=== PATIENT | female | born 1960 | race Caucasian/White ===

== ENCOUNTER 2018-05-20 19:55 | Inpatient (IN) | payer OTHER ==
[~2018-05-20] VITALS: Ht 154.9 cm; Wt 72.7 kg
--- NOTE | ~2018-05-20 | EC ---
PATIENT:YOSSI EUGENE DATE OF SERVICE: 05/20/18 SEX: F MEDICAL RECORD: [id number] DATE OF : 60 LOCATION:D.M2 D.212 AGE OF PATIENT: 58 ADMISSION DATE: 05/21/18 REFERRING PHYSICIAN: INTERPRETING PHYSICIAN: OLIVER SHERIDAN MD ECHOCARDIOGRAM REPORT ECHO CHARGES 4 ECHO COMPLETE Date: 05/21/18 CLINICAL DIAGNOSIS: CHRONIC DYSPNEA ECHOCARDIOGRAPHIC MEASUREMENTS (adult normal given) AC root (d.<3.7cm) 2.4 cm LV Septum d (<1.2 cm> 1.2 cm Valve Excursion 1.1 cm LV Septum (systole) 1.3 cm Left Atria (s.<4.0cm> 3.9 cm LVPW d(<1.2cm) 1.0 cm RV (d.<2.3cm) 1.8 cm LVPW (sytole) 1.1 cm LV diastole(<5.6CM) 4.4 cm MV E-F(>70mm/sec) cm LV systole 3.7 cm LVOT Diameter 1.9 cm MV exc.(>10mm) cm Est.ejection fraction (50-75%) % DOPPLER: LVIT cm/sec A 59 cm/sec E 72 cm/sec LA cm/sec RVSP 33.7 mmHg LVOT 95 cm/sec AOP1/2T m/s Asc. Ao 142 cm/sec RVOT 49 cm/sec RA cm/sec PA 65 cm/sec AV Gradient Peak 8.1 mmHg AV Mean 4.0 mmHg AV Area 2.2 cm MV Gradient Peak 4.3 mmHg MV Mean 2.1 mmHg MV Area cm COMMENTS: Legal Counsel: Harsh LUQUECURT BENJAMIN Bowling Pin Refinisher: 1 Dr. Sheridan TAPE# PACS Pericardial Effusion N DATE OF SERVICE: 05/21/2018 FINDINGS: 1. Left ventricular chamber size is within normal limits. Left ventricular systolic function is normal. Overall ejection fraction estimated at 60%. 2. Left atrium, right atrium, and right ventricular chamber sizes are within normal limits. 3. Valvular structures have normal structure and motion. 4. Doppler interrogation reveals mild tricuspid regurgitation. No other valvular insufficiency or stenosis. Pulmonary systolic pressure is normal, ECHOCARDIOGRAM REPORT [id number] YOSSI EUGENE estimated 34 mmHg. 5. No evidence of pericardial effusion or left ventricular thrombus. TRANSINT:[id number] Voice Confirmation ID: [id number] DOCUMENT ID: [id number] OLIVER SHERIDAN MD at 1856 CC: [id number] DICTATION DATE: 05/21/18 1233 TRAVELING PLANT OPERATOR: 05/21/18 1251 DIS IN 05/21/18 [place] [id number] [place] [id number]
--- NOTE | ~2018-05-20 | HEMODYNAMI ---
PATIENT:YOSSI EUGENE MEDICAL RECORD: [id number] : 60 [id number] ADMISSION DATE: 05/20/18 Generatedon:05/21/201812:29 Patient name: YOSSI EUGENE Patient #: [id number] SSN: D OB: 1960 Date of study: 05/21/2018 Page: Of Hemodynamic Procedure Report Patient Data Patient Demographics Procedure consent was obtained First Name: YOSSI Gender: Female Last Name: JABIER : 1960 Patient #: [id number] Age: 58 year(s) Race: Unknown Additional ID: [id number] Contact details Address: [address] [place] [address] State: [place] City: [place] Zip code: [address] Past Medical History Allergies Allergen Reaction Date Comments Reported Other [facility] Admission Data Admission Date: 05/20/2018 Admission Time: 23:33 Room #: D.2123 Height (in.): 60.63 BSA: 1.73 (m2) Height (cm.): 154 BMI: 31.62 (kg/m2) Weight (lbs.): 165.35 Weight (kg.): 75 Lab Results Lab Result Date: 05/21/2018 Lab Result Time: 0:00 Biochemistry Name Units Result Min Max BUN mg/dl 15 --(--*-)-- 7 18 Creatinine mg/dl 0.7 --(*---)-- 0.6 1.3 CBC Name Units Result Min Max Hemoglobin g/dl 14 --(*---)-- 13.5 17.5 Procedure Procedure Types Cath Procedure Diagnostic Procedure C C w/Coronaries Procedure Description Procedure Date Procedure Date: 05/21/2018 Procedure Start Time: 12:19 Procedure End Time: 12:25 Procedure Staff Name Function Kee Sheridan MD Performing Physician Vanessa Huertas RT Monitor Chuck Calderon RN Nurse Kylie Ochoa RT Scrub Procedure Data Cath Procedure Fluoroscopy Diagnostic fluoroscopy Total fluoroscopy Time: 1.7 time: 1.7 min min Diagnostic fluoroscopy Total fluoroscopy dose: 464 dose: 464 mGy mGy Contrast Material Contrast Material Type Amount (ml) Isovue 300 36 Entry Location Entry Primary Successful Side Size Upsize Upsize Entry Closure Zheng ccessful Closure Location (Fr) 1 (Fr) 2 (Fr) Remarks Device Remarks Radial Right 6 Fr Mechanical artery Short Compression Estimated blood loss: 10 ml Procedure Complications No complications Procedure Medications Medication Administration Route Dosage Oxygen etCO2 Nasal cannula 2 l/min Lidocaine 2% added to field 20 Heparin Flush Bag added to field 2 bags (1000units/500ml NS) 0.9% NaCl 100 ml/hr Radial Cocktail I.A. 1 syringe (Verapomil 2mg/Nitro 400mcg/Heparin 1500units) Versed I.V. 2 mg Fentanyl I.V. 100 mcg Benadryl I.V. 50 mg Hemodynamics Rest BSA: 1.73 (m2) HGB: 14 (g/dl) O2 Consumption: Estimated: 161.54 (ml/min) O2 Cons umption indexed: Estimated:93.38 (ml/min/m) Heart Rate: 65 (bpm) Snapshots Pre Cath Intra NCS Post Cath Vital Signs Time Heart Resp SPO2 etCO2 NIBP (mmHg) Rhythm Pain Sedation Rate (ipm) (%) (mmHg) Status Level (bpm) 12:08:42 59 23 98 12.1 Measuring NSR 0 (11) 10(A) , No pain 12:08:56 57 17 98 24.3 156/98(137) NSR 0 (11) 10(A) , No pain 12:17:50 75 13 93 27.3 160/101(144) NSR 0 (11) 9(A) , No pain 12:22:00 77 12 95 31.1 152/98(118) NSR 0 (11) 9(A) , No pain 12:28:25 68 12 94 29.6 148/97(116) NSR 0 (11) 10(A) , No pain Medications Time Medication Route Dose Verified Delivered Reason Notes Effectiveness by by 12:08:08 Benadryl I.V. 50 mg Kee Woods used for Arvin Calderon processes chemical design engineer 12:08:56 Oxygen etCO2 2 l/min Kee Woods used for Nasal Arvin Calderon processes chemical design engineer cannula 12:09:02 Lidocaine 2% added 20ml Kee Sweet for local to vial Arvin Sheridan MD anesthetic field 12:09:09 Heparin Flush added 2 bags Kee Sweet used for Bag to Arvin Sheridan MD procedure (1000units/500ml field NS) 12:09:23 0.9% NaCl 100 Kee Woods Per ml/hr Arvin Calderon RN physician 12:12:37 Versed I.V. 2 mg Kee Woods for sedation Arvin Calderon RN 12:12:43 Fentanyl I.V. 100 mcg Kee Woods for sedation Arvin Calderon RN 12:18:29 Radial Cocktail I.A. 1 Kee Sweet for (Verapomil syringe Arvin Sheridan MD vasodilation 2mg/Nitro 400mcg/Heparin 1500units) Procedure Log Time Note 11:43:04 Patient Height : 60.63 inches 11:43:38 Diagnostic Cath status Elective 11:43:40 Chuck Calderon RN sent for patient. Start room use. 11:43:41 Time tracking: Regular hours (M-F 7:00 - 5:00) 11:43:47 Plan of Care:Hemodynamics will remain stable., Cardiac rhythm will remain stable., Comfort level will be maintained., Respiratory function will remain adequate., Patient/ family verbilizes understanding of procedure., Procedure tolerated without complication., Recovers from procedure without complications.. 11:43:53 Patient received from Med II to CCL 2 Alert and oriented. Tansferred to table in Supine position. 11:43:54 Warm blankets applied, and nadya hugger turned on for patient comfort. 11:45:07 Lab Result : Hemoglobin 14 g/dl 11:45:07 Lab Result : Creatinine 0.7 mg/dl 11:45:07 Lab Result : BUN 15 mg/dl 11:45:15 Patient Weight : 165.35 lbs 12:06:50 Correct patient and procedure confirmed by team. 12:06:51 Signed procedure consent form obtained from patient. 12:06:52 ECG and BP/O2 sat monitors applied to patient. 12:06:53 Vital chart was started 12:08:08 Benadryl 50 mg I.V. was administered by Chuck Calderon RN; used for procedure; 12:08:14 Baseline sample Acquired. 12:08:18 Rhythm: sinus rhythm 12:08:20 Full Disclosure recording started 12:08:29 H&P Date Dictated: 05/21/2018 Within 30 days and on chart.. 12:08:31 Pre-procedure instructions explained to patient. 12:08:33 Family in waiting room. 12:08:35 Patient NPO since Midnight. 12:08:48 Patient allergic to Other allergysee chrt 12:08:51 Is the patient allergic to Iodine/contrast media? No. 12:08:56 Oxygen 2 l/min etCO2 Nasal cannula was administered by Chuck Calderon RN; used for procedure; 12:09:02 Lidocaine 2% 20ml vial added to field was administered by Kee Sheridan MD; for local anesthetic; 12:09:09 Heparin Flush Bag (1000units/500ml NS) 2 bags added to field was administered by Kee Sheridan MD; used for procedure; 12:09:22 Was the patient premedicated? No 12:09:23 0.9% NaCl 100 ml/hr was administered by Chuck Calderon RN; Per physician; 12:09:24 Is patient on blood thinner?No 12:09:25 Patient diabetic? Yes. 12:09:27 If diabetic: On Metformin? Yes 12:09:29 If on Metformin: Last Dose? 05/20/2018 12:09:34 Snore? Yes 12:09:36 Sleep apnea? No 12:09:44 Airway obstruction? Yes Asthma 12:09:52 Patient pain scale 0/10 SOB. 12:09:59 IV patent on arrival in left forearm with 0.9% NaCl at [facility]. 12:10:02 Lab results completed and on chart. 12:10:06 Right Radial & Right Groin area was prepped with chlora-prep and draped in sterile fashion 12:10:08 Alarms reviewed by R. N. 12:10:08 Sharps counted by scrub and verified by R.N. 12:10:09 Physician paged 12:10:11 Physician arrived 12:10:13 --------ALL STOP TIME OUT------ 12:10:14 Final Timeout: patient, procedure, and site verified with staff and physician. All members of the team are in agreement. 12:10:16 Right Radial & Right Groin site verified by team. 12:10:20 Physical assessment completed. ASA score P 2 - A patient with mild systemic disease as per Kee Sheridan MD. 12:10:24 Sedation plan: IV Moderate Sedation Medication:Versed, Fentanyl 12:10:28 Use device set Femoral Dx 12:12:37 Versed 2 mg I.V. was administered by Chuck Calderon RN; for sedation; 12:12:43 Fentanyl 100 mcg I.V. was administered by Chuck Calderon RN; for sedation; 12:16:02 ACIST Syringe (79351) opened to sterile field. 12:16:03 Bag Decanter (2002S) opened to sterile field. 12:16:04 Medline Cath Pack ([id number]) opened to sterile field. 12:16:04 DIAGNOSTIC WIRE .035 260cm J wire (590073) opened to sterile field. 12:16:07 ACIST Hand Control (65406) opened to sterile field. 12:16:07 ACIST Manifold (67645) opened to sterile field. 12:16:10 Tegaderm 4 x 4 (1626W) opened to sterile field. 12:17:03 Zero performed for pressure channel P1 12:17:16 SHEATH 6FR [place] (PAS082) opened to sterile field. 12:18:29 Radial Cocktail (Verapomil 2mg/Nitro 400mcg/Heparin 1500units) 1 syringe I.A. was administered by Kee Sheridan MD; for vasodilation; 12:18:46 Zero performed for pressure channel P1 12:18:49 Zero performed for pressure channel P1 12:19:01 Procedure started. 12:19:07 Local anesthetic to right radial artery with Lidocaine 2% by Kee Sheridan MD.INITIAL ACCESS ONLY 12:19:17 A 6 Fr Short sheath was inserted into the Right Radial artery 12:19:32 GUIDE 6Fr [place] 4.0 catheter (540124) opened to sterile field. 12:19:37 LV angiography performed. 12:19:42 EF : 60 % 12:19:50 RCA angiography performed. 12:20:39 Catheter removed. 12:21:05 GUIDE 6FR XBLAD 3.5 catheter ([id number]) opened to sterile field. 12:21:18 LCA angiography performed. 12:22:04 Catheter removed. 12:22:22 Sheath removed intact; hemostasis achieved with Mechanical Compression to the Right Radial artery. 12:22:49 TR BAND Standard ([id number]) opened to sterile field. 12:22:53 Procedure ended.(Physican Out) 12:23:03 Fluoroscopy time 01.70 minutes. 12:23:08 Fluoroscopy dose: 464 mGy 12:23:08 Flurop Dose total: 464 12:23:14 Contrast amount:Isovue 300 36ml. 12:23:19 Sharps counted by scrub and verified by R.N. 12:23:22 TR band inflated with 13cc of air. 12:23:23 Insertion/operative site no bleeding no hematoma. 12:23:31 Post-op/insertion site Right Femoral artery dressed using a 4 x 4 and Tegaderm. 12:23:40 Post right radial artery:stable 12:23:42 Post Procedure Pulses reassessed and unchanged 12:23:46 Post-procedure physical assessment completed. ASA score P 2 - A patient with mild systemic disease as per Kee Sheridan MD. 12:23:49 Post procedure rhythm: sinus rhythm 12:23:52 Estimated blood loss: 10 ml 12:23:57 Post procedure instruction explained to patient.Patient verbalizes understanding. 12:24:13 Procedure and supply charges have been captured, reviewed, submitted and are correct. 12:25:06 Procedure Complication : No complications 12:25:08 Vital chart was stopped 12:25:09 See physician's report for complete and final results. 12:25:12 Report given to Pre/Post Procedure Room. 12:25:16 Patient transfered to Pre/Post Procedure Room with Stretcher. 12:25:18 Procedure ended. 12:25:18 Full Disclosure recording stopped 12:25:21 End room use (Document Last) Device Usage Item Name Manufacture Quantity Catalog Hospital Part Current Minimal L ot# / Number Charge Number Stock Stock Serial# Code ACIST Acist 1 23455 416821 081421 086218 20 Syringe Medical (97454) Systems Inc Bag Microtek 1 834945 42565 859606 5 Decanter Medical Inc. () Medline Medline 1 [id number] 525176 06338 221007 5 Cath Pack ([id number]) DIAGNOSTIC St Len 1 982522 835423 259426 899699 30 WIRE .035 260cm J wire (376920) ACIST Hand Acist 1 95491 129547 875948 057527 5 Control Medical (25534) Systems Inc ACIST Acist 1 81909 838394 829527 573571 5 Manifold Medical (74754) Systems Inc Tegaderm 4 3M 1 1626W 747672 878362 216371 5 x 4 (1626W) SHEATH 6FR Terumo 1 UHV522 150137 167386 687492 40 [place] (UBN895) GUIDE 6Fr Terumo 1 40-1611 440142 962930 120913 1 [place] 4.0 catheter (041288) GUIDE 6FR Cardinal 1 09580738 530955 791777 749550 10 XBLAD 3.5 Health catheter (52601969) TR BAND Terumo 1 DKI71-UOJ 700410 583814 704659 40 Standard ([id number]) Signature Audit [place] Stage Time Signature Unsigned Intra-Procedure 05/21/2018 Vanessa Huertas 12:29:05 PM RT(R) Signatures Monitor : Vanessa Huertas Signature : RT Date : Time : [place] [address]Amena AMANDA CAMERONManuel, ESTHELA [address]
--- NOTE | ~2018-05-20 | OP ---
PATIENT NAME: YOSSI EUGENE MEDICAL RECORD: [id number] :60 LOCATION:D.M2 D.2123 ADMISSION DATE:05/21/18 SURGEON: OLIVER WILLARD MD DATE OF OPERATION: 05/21/2018 PROCEDURES: 1. Left heart catheterization. 2. Selective coronary angiography. 3. Left ventriculogram. INDICATION: Chest pain compatible with angina. PROCEDURE IN DETAIL: After informed consent was obtained and after a detailed description of the risks, benefits as well as alternative therapies, the patient elected to proceed with angiogram and heart catheterization. The right radial area was prepped and draped in normal sterile fashion. Right radial artery was cannulated via modified Seldinger technique with placement of 5-Marshallese sheath. All catheters exchanged through this sheath. FINDINGS: The left ventriculogram was performed in standard 30-degree MOORE view, reveals good cardiac wall motion throughout all segments. Overall ejection fraction estimated 60%. SELECTIVE CORONARY ANGIOGRAPHY: Left main, left anterior descending, left circumflex, right coronary artery are smooth-walled vessels with no angiographic evidence of coronary artery disease. OVERALL IMPRESSION: 1. No angiographic evidence of coronary artery disease. 2. Normal left heart pressures. 3. Normal left ventricular systolic function. Chest pain is noncardiac in etiology. No further cardiac workup needs to be ascertained. TRANSINT:[id number] Voice Confirmation ID: [id number] DOCUMENT ID: [id number] OLIVER WILLARD MD at 1856 CC: [id number] DICTATION DATE: 05/21/18 1224 TIMBER BUYER: 05/21/18 1244 DIS IN 05/21/18 [place] [id number] [place] [address]
--- NOTE | ~2018-05-20 | MORECARE ---
CASE MANAGEMENT DISCHARGE SUMMARY PATIENT: YOSSI EUGENE UNIT: [id number] ADM DATE: 05/21/18 AGE: 58 : 60 SEX: F ROOM/BED: D.3023 AUTHOR: VISHAL NICOLAS PHYSICIAN: REFERRING PHYSICIAN: KATRINA BERMUDEZ MD DATE OF SERVICE: 05/22/18 Discharge Plan Patient Name: YOSSI EUGENE [facility] [facility] 1960 Planned Disposition: Home Anticipated Discharge Date: 05/21/18 Discharge Date: 05/21/2018 Expected LOS: 1 Initial Reviewer: [email or web address] Initial Review Date: 05/22/2018 Generated: 05/22/18 9:37 am Patient Name: YOSSI EUGENE Page 93830 at 0837 All edits/amendments must be made on the electronic document DICTATION DATE: 05/22/18835 HAZARDOUS MATERIALS HANDLER: FLAVIA 05/22/1836 RPT#: [id number] DC DATE:05/21/18 STATUS: DIS IN [facility] [address] [facility] [place] [address] END OF REPORT
[2018-05-20] MEDS ORDERED: COREG12.5 MG PO (20:12)
[2018-05-20] MEDS ORDERED: GLYXAMBI 25 MG1 EACH PO (20:13)
[2018-05-20] MEDS ORDERED: GLUCOPHAGE1000 MG PO (20:13)
[2018-05-20] MEDS ORDERED: LOSARTAN-HCTZ1 EAC2 PO (20:13)
[2018-05-20] MEDS ORDERED: DULERA 100 MCG8.8 GM INH (20:13)
[2018-05-20] MEDS ORDERED: NEXIUM20 MG PO (20:14)
[2018-05-20] MEDS ORDERED: K-TAB10 MEQ PO (20:14)
[2018-05-20] MEDS ORDERED: PRAVACHOL40 MG PO (20:14)
[2018-05-20] MEDS ORDERED: PREVACID30 MG PO (20:14)
[2018-05-20] MEDS ORDERED: REGLAN5 MG PO (20:15)
[2018-05-20] MEDS ORDERED: SINGULAIR10 MG PO (20:15)
[2018-05-20] MEDS ORDERED: DESERYL50 M2 PO (20:15)
[2018-05-20] MEDS ORDERED: VITAMIN B-12100 MCG PO (20:15)
[2018-05-20] MEDS ORDERED: PHENERGAN12.5 MG RC (20:15)
[2018-05-20] MEDS ORDERED: ZOFRAN4 MG PO (20:16)
[2018-05-20] MEDS ORDERED: XOPENEX 1.1.25 MG/3 (20:16)
[2018-05-20] MEDS ORDERED: ZETIA10 MG PO (20:16)
[2018-05-20] MEDS ORDERED: VITAMIN D250000 UNIT PO (20:16)
[2018-05-20] MEDS ORDERED: ADDERALL 30 MG30 MG PO (20:17)
[2018-05-20] MEDS ORDERED: BUMEX2 MG PO (20:17)
[2018-05-20] MEDS ORDERED: ATROVENT HFA12.9 GM INH (20:17)
[2018-05-20] MEDS ORDERED: KLONOPIN1 MG PO (20:17)
[2018-05-20] MEDS ORDERED: CARDIZEM LA180 MG PO (20:17)
[2018-05-20 21:32] LABS: APPEARANCE CLEAR (CLEAR); COLOR YELLOW (YELLOW); SPECIFIC GRAVITY 1.025 (1.005-1.020)
[2018-05-20 21:32] LABS: BASOPHILS 0.1 % (0-2); EOSINOPHILS 0.1 % (0-7); HEMOGLOBIN 14.9 g/dL (12-16); IMMATURE GRANULOCYTES 0.6 % (0-5); LYMPHOCYTES 22.3 % (15-50); MCH 29.9 pg (26.0-34.0); MCHC 34.7 g/dL (31.0-37.0); MCV 86.2 fL (80.0-100.0); MEAN PLATELET VOLUME 10.4 fL (7.4-10.4); MONOCYTES 8.6 % (2-11); NEUTROPHILS 68.3 % (40-80); PLATELET COUNT 245 10x3/uL (130-400); RBC 4.99 10x6/uL (4.00-5.40); RDW 13.2 % (11.5-14.5); WBC 10.4 10x3/uL (4.8-10.8)
[2018-05-20 21:33] LABS: BACTERIA FEW /hpf (NONE SEEN); BILIRUBIN NEGATIVE (NEGATIVE); EPITHELIAL CELLS OCC /hpf (0-5); GLUCOSE 1000 mg/dL (NEGATIVE); KETONE NEGATIVE (NEGATIVE); NITRITE NEGATIVE (NEGATIVE); PROTEIN NEGATIVE (NEGATIVE); RED CELLS - URINE OCC /hpf (0-5); UROBILINOGEN NORMAL (NORMAL); WHITE CELLS - URINE 0-5 /hpf (0-5)
[2018-05-20 21:40] LABS: ALBUMIN 3.6 g/dL (3.4-5.0); ALKALINE PHOSPHATASE 113 U/L (46-116); ALT (SGPT) 19 U/L (10-68); BILIRUBIN - TOTAL 0.25 mg/dL (0.2-1.3); CALC OSMOLALITY 285 mosm/kg (275-300); CALCIUM 9.1 mg/dL (8.5-10.1); CARBON DIOXIDE 23.3 mmol/L (21.0-32.0); CHLORIDE - SERUM 107 mmol/L (98-107); CREATININE - SERUM 0.8 mg/dL (0.6-1.3); GLUCOSE 134 mg/dL (74-106); SODIUM 141 mmol/L (136-145); UREA NITROGEN 20 mg/dL (7-18); eGFR NON AFRICAN AMERICAN 78 mL/min (90-120)
[2018-05-20 21:48] LABS: PRO BNP 475 pg/mL (0-125)
[2018-05-20 21:49] LABS: TROPONIN-I < 0.017 ng/mL (0.000-0.060)
[2018-05-20 23:00] VITALS: BP 138/81
[2018-05-21 00:41] VITALS: BP 140/83
[2018-05-21 08:31] VITALS: BP 109/77
[2018-05-21] MEDS ORDERED: PHENERGAN25 M1 PO (09:06)
[2018-05-21] MEDS ORDERED: MUCINEX DM ER1 EAC1 PO (09:07)
[2018-05-21 10:34] LABS: BASOPHILS 0.2 % (0-2); EOSINOPHILS 0.3 % (0-7); HEMATOCRIT 41.1 % (36.0-48.0); IMMATURE GRANULOCYTES 0.6 % (0-5); LYMPHOCYTES 30.4 % (15-50); MCH 29.4 pg (26.0-34.0); MCHC 34.1 g/dL (31.0-37.0); MCV 86.2 fL (80.0-100.0); MEAN PLATELET VOLUME 10.2 fL (7.4-10.4); MONOCYTES 7.6 % (2-11); NEUTROPHILS 60.9 % (40-80); PLATELET COUNT 214 10x3/uL (130-400); RBC 4.77 10x6/uL (4.00-5.40); RDW 13.2 % (11.5-14.5)
[2018-05-21 10:44] LABS: CALC OSMOLALITY 289 mosm/kg (275-300); CALCIUM 8.5 mg/dL (8.5-10.1); CARBON DIOXIDE 25.4 mmol/L (21.0-32.0); CHLORIDE - SERUM 109 mmol/L (98-107); CREATININE - SERUM 0.7 mg/dL (0.6-1.3); GLUCOSE 104 mg/dL (74-106); POTASSIUM - SERUM 3.7 mmol/L (3.5-5.1); SODIUM 145 mmol/L (136-145); UREA NITROGEN 15 mg/dL (7-18); WBC 6.6 10x3/uL (4.8-10.8); eGFR NON AFRICAN AMERICAN > 90 mL/min (90-120)
[2018-05-21 12:00] VITALS: BP 137/73
[2018-05-21 16:03] VITALS: BP 143/75
[2018-05-21 16:46] VITALS: Ht 154.9 cm; Wt 72.7 kg
== END 2018-05-21 18:48 | disposition home or self-care (01) | DRG 195 ==
LOC: D.ER 19:55 → D.M2 23:33 → D.EDHOLD 23:33 → D.M2 05-21 04:25 → OBSVTIME 05-21 15:10 → D.M2 05-21 15:11
PROVIDERS: Family Medicine; Internal Medicine Interventional Cardiology
PROC: B2151ZZ Fluoroscopy of Left Heart using Low Osmolar Contrast (ICD-10-PCS; 2018-05-21)
PROC: 4A023N7 Measurement of Cardiac Sampling and Pressure, Left Heart, Percutaneous Approach (ICD-10-PCS; 2018-05-21)
PROC: B2111ZZ Fluoroscopy of Multiple Coronary Arteries using Low Osmolar Contrast (ICD-10-PCS; principal; 2018-05-21 11:30)
DX: J18.9 Pneumonia, unspecified organism (principal); J45.909 Unspecified asthma, uncomplicated; F41.9 Anxiety disorder, unspecified; K21.9 Gastro-esophageal reflux disease without esophagitis; I10 Essential (primary) hypertension; E11.9 Type 2 diabetes mellitus without complications; Z86.79 Personal history of other diseases of the circulatory system; R00.2 Palpitations

== ENCOUNTER → 2018-08-19 12:57 | Outpatient (CLI) | payer BC ==
[2018-05-21 16:46] VITALS: BMI 30.3
[~2018-08-19 12:57] MED LIST: ADDERALL 30 MG30 MG PO; ATROVENT HFA12.9 GM INH; BUMEX2 MG PO; CARDIZEM LA180 MG PO; COREG12.5 MG PO; DESERYL50 M2 PO; DULERA 100 MCG8.8 GM INH; GLUCOPHAGE1000 MG PO; GLYXAMBI 25 MG1 EACH PO; K-TAB10 MEQ PO; KLONOPIN1 MG PO; LOSARTAN-HCTZ1 EAC2 PO; MUCINEX DM ER1 EAC1 PO; NEXIUM20 MG PO; PHENERGAN12.5 MG RC; PHENERGAN25 M1 PO; PRAVACHOL40 MG PO; PREVACID30 MG PO; REGLAN5 MG PO; SINGULAIR10 MG PO; VITAMIN B-12100 MCG PO; VITAMIN D250000 UNIT PO; XOPENEX 1.1.25 MG/3; ZETIA10 MG PO; ZOFRAN4 MG PO
[2018-08-23 14:11] LABS: IMMUNOGLOBULIN E 253 IU/mL (0-100)
== END | disposition home or self-care (01) ==
LOC: D.LABREF 12:57
PROVIDERS: Internal Medicine Pulmonary Disease
DX: J45.909 Unspecified asthma, uncomplicated (principal)

== ENCOUNTER → 2018-09-26 13:05 | Outpatient (CLI) | payer BC ==
[2018-05-21 16:46] VITALS: BMI 30.3
== END | disposition home or self-care (01) ==
LOC: D.LAB 09-09 14:30 → D.RT 09-09 15:00
PROVIDERS: ATTEND Internal Medicine Pulmonary Disease
DX: J45.909 Unspecified asthma, uncomplicated (principal)

== ENCOUNTER 2019-02-02 08:00 | Outpatient (CLI) | payer BC ==
[2018-05-21 16:46] VITALS: BMI 30.3
== END 2019-02-02 23:59 | disposition home or self-care (01) ==
LOC: D.MAMMO 08:00
PROVIDERS: ATTEND Clinical Nurse Specialist Adult Health
DX: Z12.31 Encounter for screening mammogram for malignant neoplasm of breast (principal)

== ENCOUNTER → 2019-06-03 13:08 | Outpatient (CLI) | payer BC ==
[2018-05-21 16:46] VITALS: BMI 30.3
--- NOTE | 2019-06-09 14:03 | EC ---
PATIENT:YOSSI EUGENE DATE OF SERVICE: 06/03/19 SEX: F MEDICAL RECORD: [id number] DATE OF : 60 [facility]GE OF PAT[facility]: 59 ADMISSION DATE: 06/03/19 REFERRING PHYSICIAN: INTERPRETING PHYSICIAN: RED NERI MD ECHOCARDIOGRAM REPORT ECHO CHARGES 4 ECHO COMPLETE Date: 06/03/19 CLINICAL DIAGNOSIS: ARRHYTHMIAS/PALPITATIONS/ MURMUR H/O HTN ECHOCARDIOGRAPHIC MEASUREMENTS (adult normal given) AC root (d.<3.7cm) 2.6 cm LV Septum d (<1.2 cm> 1.4 cm Valve Excursion 1.5 cm LV Septum (systole) 1.8 cm Left Atria (s.<4.0cm> 3.5 cm LVPW d(<1.2cm) 1.3 cm RV (d.<2.3cm) 2.8 cm LVPW (sytole) 1.6 cm LV diastole(<5.6CM) 4.7 cm MV E-F(>70mm/sec) cm LV systole 3.4 cm LVOT Diameter 1.6 cm MV exc.(>10mm) cm Est.ejection fraction (50-75%) % DOPPLER: LVIT cm/sec A 47.0 cm/sec E 77.0 cm/sec LA cm/sec RVSP 32.1 mmHg LVOT 97.0 cm/sec AOP1/2T m/s Asc. Ao 156 cm/sec RVOT 42.0 cm/sec RA cm/sec PA 78.0 cm/sec AV Gradient Peak 9.7 mmHg AV Mean 4.1 mmHg AV Area 1.4 cm MV Gradient Peak 4.5 mmHg MV Mean 1.3 mmHg MV Area cm COMMENTS: OP - HC Supervisor Maintenance And Custodians: 1 KIMI BEDFORD Credit Interviewer: 3 Dr. Molina TAPE# PACS Pericardial Effusion N DATE OF SERVICE: Adequate 2D, color flow, spectral Doppler, and M-mode. LVH is present. LV internal dimension is normal. Wall motion is normal. EF is greater than or equal to 55%. Aortic valve is tricuspid. No evidence of stenosis by Doppler interrogation. Left atrium normal. Mitral valve shows no prolapse. Trace MR. Right-sided chambers grossly normal. Trace TR. ECHOCARDIOGRAM REPORT [id number] YOSSI EUGENE TRANSINT:[id number] Voice Confirmation ID: [id number] DOCUMENT ID: [id number] RED NERI MD at 1403 CC: [id number] DICTATION DATE: 06/08/19 1325 HOT PLATE PRESS OPERATOR: 06/08/19 1715 DEP CLI 06/03/19 [place] [id number] [place] [id number]
== END | disposition home or self-care (01) ==
LOC: D.HCCECHO 05-26 13:00
PROVIDERS: ATTEND Internal Medicine Interventional Cardiology
DX: R00.2 Palpitations (principal); R01.1 Cardiac murmur, unspecified

== ENCOUNTER 2019-07-02 17:15 | Emergency (ER) | payer BC ==
[~2019-07-02] VITALS: Ht 154.9 cm; Wt 74.5 kg
[2019-07-02 17:27] VITALS: Ht 154.9 cm; Wt 74.5 kg
[2019-07-02] MEDS ORDERED: BENICAR HCT 201 EAC1 PO (17:31)
[2019-07-02 17:48] LABS: BASOPHILS 0.3 % (0-2); EOSINOPHILS 3.7 % (0-7); HEMATOCRIT 44.5 % (36.0-48.0); HEMOGLOBIN 15.5 g/dL (12-16); IMMATURE GRANULOCYTES 0.1 % (0-5); MCH 30.3 pg (26.0-34.0); MCHC 34.8 g/dL (31.0-37.0); MCV 86.9 fL (80.0-100.0); MEAN PLATELET VOLUME 9.5 fL (7.4-10.4); MONOCYTES 9.3 % (2-11); NEUTROPHILS 51.6 % (40-80); PLATELET COUNT 243 10x3/uL (130-400); RBC 5.12 10x6/uL (4.00-5.40); WBC 7.1 10x3/uL (4.8-10.8)
[2019-07-02 18:03] LABS: ANION GAP 12.8 mmol/L (8-16); CARBON DIOXIDE 28.9 mmol/L (21.0-32.0); POTASSIUM - SERUM 3.7 mmol/L (3.5-5.1)
[2019-07-02 18:26] LABS: ALBUMIN 3.4 g/dL (3.4-5.0); BILIRUBIN - TOTAL 0.38 mg/dL (0.2-1.3); PROTEIN - SERUM 6.6 g/dL (6.4-8.2)
[2019-07-02] MEDS ORDERED: BACLOFEN20 M1 PO (20:05)
[2019-07-02] MEDS ORDERED: PREDNISONE20 MG PO (20:05)
[2019-07-02 20:50] VITALS: BP 161/81
== END 2019-07-02 20:50 | disposition home or self-care (01) ==
LOC: D.ER 17:15
PROVIDERS: Family Medicine
DX: M79.605 Pain in left leg (principal); E11.9 Type 2 diabetes mellitus without complications; Z79.84 Long term (current) use of oral hypoglycemic drugs; Z86.718 Personal history of other venous thrombosis and embolism; J45.909 Unspecified asthma, uncomplicated

== ENCOUNTER 2019-09-01 15:06 | Inpatient (IN) | payer BC ==
[~2019-09-01] VITALS: Ht 154.9 cm; Wt 73.9 kg
[~2019-09-01 15:06] MED LIST changes: +BACLOFEN20 M1 PO; +BENICAR HCT 201 EAC1 PO; +PREDNISONE20 MG PO
[2019-09-01 16:16] VITALS: BP 123/72; BMI 30.8
[2019-09-01] MEDS ORDERED: ZOFRAN4 MG PO (16:43)
[2019-09-01 17:05] LABS: ALBUMIN 3.4 g/dL (3.4-5.0); ANION GAP 13.8 mmol/L (8-16); BILIRUBIN - TOTAL 0.45 mg/dL (0.2-1.3); CALCIUM 8.8 mg/dL (8.5-10.1); CARBON DIOXIDE 26.6 mmol/L (21.0-32.0); POTASSIUM - SERUM 3.4 mmol/L (3.5-5.1); PROTEIN - SERUM 6.5 g/dL (6.4-8.2)
[2019-09-01 17:15] LABS: BASOPHILS 0.3 % (0-2); EOSINOPHILS 0.8 % (0-7); HEMATOCRIT 45.1 % (36.0-48.0); HEMOGLOBIN 15.7 g/dL (12-16); IMMATURE GRANULOCYTES 0.2 % (0-5); MCHC 34.8 g/dL (31.0-37.0); MCV 86.1 fL (80.0-100.0); MONOCYTES 10.8 % (2-11); NEUTROPHILS 37.9 % (40-80); PLATELET COUNT 202 10x3/uL (130-400); RBC 5.24 10x6/uL (4.00-5.40); RDW 13.5 % (11.5-14.5); WBC 5.9 10x3/uL (4.8-10.8)
[2019-09-01 20:00] VITALS: BP 133/76
--- NOTE | 2019-09-01 21:00 | NUR ---
PT SITTING UP IN BED WITHOUT DISTRESS, AOX4. IV RIGHT AC INFUSING NS @ 75. ON DROPLET ISOLATION FOR FLU. FSBS 303, GAVE 12 UNITS ORDERED. PT GIVEN HS SNACK OF KRISS CRACKERS AND PEANUT BUTTER. DENIES OTHER NEEDS. CL IN REACH, WILL CTM
[2019-09-01 22:49] LABS: BILIRUBIN NEGATIVE (NEGATIVE); GLUCOSE 1000 mg/dL (NEGATIVE); KETONE NEGATIVE (NEGATIVE); NITRITE NEGATIVE (NEGATIVE); UROBILINOGEN NORMAL (NORMAL)
[2019-09-02] VITALS: BP 114/70
[2019-09-02 04:00] VITALS: BP 102/61
[2019-09-02 05:57] LABS: ANION GAP 17.6 mmol/L (8-16); CALCIUM 8.6 mg/dL (8.5-10.1); MAGNESIUM - SERUM 1.6 mg/dL (1.8-2.4); POTASSIUM - SERUM 3.4 mmol/L (3.5-5.1)
[2019-09-02 05:59] LABS: CARBON DIOXIDE 17.8 mmol/L (21.0-32.0)
[2019-09-02 06:47] LABS: HEMATOCRIT 41.2 % (36.0-48.0); HEMOGLOBIN 14.2 g/dL (12-16); MCH 29.6 pg (26.0-34.0); MCHC 34.5 g/dL (31.0-37.0); MCV 85.8 fL (80.0-100.0); MEAN PLATELET VOLUME 10.6 fL (7.4-10.4); PLATELET COUNT 169 10x3/uL (130-400); RDW 13.2 % (11.5-14.5)
[2019-09-02 06:48] LABS: WBC 2.3 10x3/uL (4.8-10.8)
[2019-09-02 08:09] VITALS: BP 149/76
[2019-09-02 08:10] LABS: LYMPHOCYTES 13 % (15-50); MONOCYTES 1 % (2-11); NEUTROPHILS 86 % (40-80); PLATELET ESTIMATE NORMAL
--- NOTE | 2019-09-02 09:00 | NUR ---
ASSESSMENT PER FLOW SHEET. PATIENT IS WITHOUT DISTRESS.DROPLET ISOLATION MAINTAINED.CALL LIGHT IN REACH
[2019-09-02 10:58] VITALS: Ht 154.9 cm; Wt 73.9 kg
--- NOTE | 2019-09-02 12:30 | NUR ---
PT IS WITHOUT NEEDS AT PRESENT.
[2019-09-02 12:54] VITALS: BP 127/68
[2019-09-02 16:29] VITALS: BP 123/77
[2019-09-02 18:00] LABS: BILIRUBIN NEGATIVE (NEGATIVE); GLUCOSE 250 mg/dL (NEGATIVE); KETONE NEGATIVE (NEGATIVE); NITRITE NEGATIVE (NEGATIVE); UROBILINOGEN NORMAL (NORMAL)
[2019-09-02 19:30] VITALS: BP 133/90
--- NOTE | 2019-09-02 19:30 | NUR ---
PT SITTING UP IN BED WITHOUT DISTRESS, AOX4. SLIGHT INSP WHEEZING HEARD TO BILAT UPPER EXT. NON PRODUCTIVE COUGH. DENIES NEEDS AT THIS TIME. CL IN REACH, WILL CTM
[2019-09-03] VITALS: BP 128/87
[2019-09-03 04:00] VITALS: BP 127/77
[2019-09-03 04:57] LABS: BASOPHILS 0.1 % (0-2); EOSINOPHILS 0 % (0-7); HEMATOCRIT 41.5 % (36.0-48.0); HEMOGLOBIN 13.8 g/dL (12-16); IMMATURE GRANULOCYTES 0.3 % (0-5); MCH 29.1 pg (26.0-34.0); MCHC 33.3 g/dL (31.0-37.0); MCV 87.4 fL (80.0-100.0); MEAN PLATELET VOLUME 10.2 fL (7.4-10.4); MONOCYTES 3.4 % (2-11); NEUTROPHILS 82.2 % (40-80); RBC 4.75 10x6/uL (4.00-5.40); RDW 13.4 % (11.5-14.5)
[2019-09-03 05:06] LABS: PLATELET COUNT 229 10x3/uL (130-400); WBC 9.6 10x3/uL (4.8-10.8)
[2019-09-03 05:07] LABS: CALCIUM 8.7 mg/dL (8.5-10.1); MAGNESIUM - SERUM 1.7 mg/dL (1.8-2.4); POTASSIUM - SERUM 4.3 mmol/L (3.5-5.1)
[2019-09-03 05:09] LABS: CARBON DIOXIDE 25.3 mmol/L (21.0-32.0)
--- NOTE | 2019-09-03 09:00 | NUR ---
ASSESSMENT PER FLOW SHEET. PT IS WITHOUT DISTRESS.CALL LIGHT IN REACH. DROPLET ISOLATION MAINTAINED.
[2019-09-03 10:00] VITALS: BP 106/53
--- NOTE | 2019-09-03 11:07 | NUR ---
NUTRITION F/U PT REMAINS IN ISOLATION, TOLERATING DIABETIC DIET WITH ~75% AVERAGE INTAKE MEALS. WILL CONTINUE TO PROVIDE DIET, MONITOR PO INTAKE. RD FOLLOWING
[2019-09-03 13:47] VITALS: BP 115/70
[2019-09-03 18:09] VITALS: BP 117/66
--- NOTE | 2019-09-03 20:00 | NUR ---
PATIENT SITTING UP IN BED AND TALKING ON THE PHONE. NO S/S OF DISTRESS. NO C/O AT THIS TIME. PATIENT WEARS BIPAP AT NIGHT. PATIENT HAS RIGHT AC IV NORMAL SALINE @ 75 ML/HR. IV IS PATENT WITHOUT REDNESS, SWELLING, OR TEDNERNESS. PATIENT IS POSITIVE OR FLU A, AND ON DROPLET PRECAUTIONS. CALL LIGHT IN PLACE. WILL CONTINUE TO MONITOR.
[2019-09-04] VITALS: BP 128/67
--- NOTE | 2019-09-04 00:53 | NUR ---
I have reviewed this patient and I concur with the Shift Assessment completed by the Licensed Practical Nurse today this shift.
[2019-09-04 04:00] VITALS: BP 109/72
[2019-09-04 05:27] LABS: BASOPHILS 0.1 % (0-2); EOSINOPHILS 0 % (0-7); HEMATOCRIT 39.8 % (36.0-48.0); HEMOGLOBIN 13.2 g/dL (12-16); IMMATURE GRANULOCYTES 0.2 % (0-5); LYMPHOCYTES 15.4 % (15-50); MCH 29.3 pg (26.0-34.0); MCHC 33.2 g/dL (31.0-37.0); MCV 88.4 fL (80.0-100.0); MEAN PLATELET VOLUME 9.9 fL (7.4-10.4); MONOCYTES 3.8 % (2-11); NEUTROPHILS 80.5 % (40-80); PLATELET COUNT 216 10x3/uL (130-400); RDW 13.7 % (11.5-14.5); WBC 9.2 10x3/uL (4.8-10.8)
[2019-09-04 05:42] LABS: ANION GAP 12.6 mmol/L (8-16); CALCIUM 8.2 mg/dL (8.5-10.1); CARBON DIOXIDE 25.9 mmol/L (21.0-32.0); MAGNESIUM - SERUM 1.8 mg/dL (1.8-2.4); POTASSIUM - SERUM 4.5 mmol/L (3.5-5.1)
--- NOTE | 2019-09-04 07:15 | NUR ---
REC'D IN BED AWAKE AND ALERT. RESP EVEN AND UNLABORED WITH NO DISTRESS NOTED. CAN EXPRESS NEEDS AND WANTS. NO C/O NOTED OR VOICED. ASSESSMENT COMPLETED. C/L IN REACH AT BEDSIDE.
[2019-09-04 09:30] VITALS: BP 111/69
--- NOTE | 2019-09-04 09:41 | MORECARE ---
CASE MANAGEMENT DISCHARGE SUMMARY PATIENT: YOSSI EUGENE UNIT: [id number] ADM DATE: 09/01/19 AGE: 59 : 60 SEX: F ROOM/BED: D.2217 AUTHOR: VISHAL NICOLAS PHYSICIAN: REFERRING PHYSICIAN: BLANCA DASH MD DATE OF SERVICE: 09/04/19 Discharge Plan Patient Name: YOSSI EUGENE [facility]:[place] : 1960 Planned Disposition: Home or Self Care Anticipated Discharge Date: Discharge Date: Expected LOS: Initial Reviewer: [email or web address] Initial Review Date: 09/01/2019 Generated: 09/04/19 10:41 am Comments DCP- Discharge Planning Updated by [email or web address]: Nelly Cochran on 09/04/19 8:[address] Patient Name: YOSSI EUGENE Admission Status: Urgent Accout number: [id number] Admission Date: 09-01-2019 : 1960 Admission Diagnosis: Attending: BLANCA DASH Current LOS: 3 Anticipated DC Date: Planned Disposition: Home or Self Care Primary Insurance: [id number] Discharge Planning Comments: CM met with patient to complete initial dc planning assessment. CM educated patient on the CM role and verbal consent given by patient to complete assessment. Patient lives at home where she is independent with her care. At discharge patient plans to return home and feels this is a safe discharge. Her daughter will be her stud driver home. CM discussed availability of home health, rehab services, and medical equipment. She has a bipap machine and a nebulizer (that is broken). She stated that she got her bipap machine from [employer]. I told her I would try to get her a new nebulizer. HAYDER with [employer] or [employer]. Patient denied known discharge needs at this time. CM will continue to follow and will assist as needed with dc plans/needs. Director Of Adult Epilepsy: Nelly Cochran DCPIA - Discharge Planning Initial Assessment Updated by [email or web address]: Nelly Cochran on 09/04/19 9:36 am * Is the patient Alert and Oriented? Yes * PCP [facility] * Pharmacy [address] * Preadmission Environment Home with Family * ADLs Independent * Equipment BIPAP Nebulizer * List name and contact numbers for known caregivers / representatives who currently or will assist patient after discharge: VALERY [phone] * Verbal permission to speak to the caregivers and representatives has been obtained from the patient. N/A * Community resources currently utilized None * Additional services required to return to the preadmission environment? Yes * Can the patient safely return to the preadmission environment? Yes * Has this patient been hospitalized within the prior 30 days at any hospital? No Coverage Notice Reviewer: [email or web address] Jordan Cochran Notice Issued Date-Time: 09/04/2019 8:50 Notice Type: Patient Choice Letter Notice Delivered To: Patient Relationship to Patient: Cable Hooker Name: Delivery Method: HAND - Hand Delivered Swetha Days: Prior Verbal Notification: Recipient Understood Notice: Yes Recipient Signature: Yes Med Rec Note Co-signed by Attending: Coverage Notice Comment: hayder for [facility] or [employer] Patient Name: YOSSI EUGENE Page 07241 at 0941 All edits/amendments must be made on the electronic document DICTATION DATE: 09/04/19940 WIRE COINER: FLAVIA 09/04/19940 RPT#: [id number] DC DATE: STATUS: ADM IN [facility] [address] [place] [address] END OF REPORT
[2019-09-04 13:50] VITALS: BP 135/72
--- NOTE | 2019-09-04 15:40 | MORECARE ---
CASE MANAGEMENT DISCHARGE SUMMARY PATIENT: YOSSI EUGENE UNIT: [id number] ADM DATE: 09/01/19 AGE: 59 : 60 SEX: F ROOM/BED: D.2213 AUTHOR: VISHAL NICOLAS PHYSICIAN: REFERRING PHYSICIAN: BLANCA DASH MD DATE OF SERVICE: 09/04/19 Discharge Plan Patient Name: YOSSI EUGENE Facility: [facility]:[place] : 1960 Planned Disposition: Home or Self Care Anticipated Discharge Date: Discharge Date: Expected LOS: Initial Reviewer: [email or web address] Initial Review Date: 09/01/2019 Generated: 09/04/19 4:39 pm Comments DCP- Discharge Planning Updated by [email or web address]: Nelly Cochran on 09/04/19 2:[address] SENT ORDER AND CLINCIAL TO [facility] FOR A NEBULIZER DCP- Discharge Planning Updated by [email or web address]: Nelly Cochran on 09/04/19 2:[address] [facility] WILL BE ABLE TO SERVICE THE PATIENT WITH A NEW NEBULIZER [facility] HAS THE PATIENTS FACESHEET DCP- Discharge Planning Updated by [email or web address]: Nelly Cochran on 09/04/19 8:[address] Patient Name: YOSSI EUGENE Admission Status: Urgent Accout number: [id number] Admission Date: 09-01-2019 : 1960 Admission Diagnosis: Attending: BLANCA DASH Current LOS: 3 Anticipated DC Date: Planned Disposition: Home or Self Care Primary Insurance: [employer] [facility] Discharge Planning Comments: CM met with patient to complete initial dc planning assessment. CM educated patient on the CM role and verbal consent given by patient to complete assessment. Patient lives at home where she is independent with her care. At discharge patient plans to return home and feels this is a safe discharge. Her daughter will be her pick up truck driver home. CM discussed availability of home health, rehab services, and medical equipment. She has a bipap machine and a nebulizer (that is broken). She stated that she got her bipap machine from [employer]. I told her I would try to get her a new nebulizer. HAYDER with [facility] or [facility]. Patient denied known discharge needs at this time. CM will continue to follow and will assist as needed with dc plans/needs. Ice Plant Operator: Nelly Cochran DCPIA - Discharge Planning Initial Assessment Updated by [id number]: Nelly Cochran on 09/04/19 9:36 am * Is the patient Alert and Oriented? Yes * PCP CHANO * Pharmacy [address] * Preadmission Environment Home with Family * ADLs Independent * Equipment BIPAP Nebulizer * List name and contact numbers for known caregivers / representatives who currently or will assist patient after discharge: VALERY [phone] * Verbal permission to speak to the caregivers and representatives has been obtained from the patient. N/A * Community resources currently utilized None * Additional services required to return to the preadmission environment? Yes * Can the patient safely return to the preadmission environment? Yes * Has this patient been hospitalized within the prior 30 days at any hospital? No External Providers External Provider: Breana Next Contact Date: Service Request Date: Service Type: Resolution: Reviewer: Comments: Coverage Notice Reviewer: [id number] - Nelly Cochran Notice Issued Date-Time: 09/04/2019 8:50 Notice Type: Patient Choice Letter Notice Delivered To: Patient Relationship to Patient: District Extension Service Agent Name: Delivery Method: HAND - Hand Delivered Swetha Days: Prior Verbal Notification: Recipient Understood Notice: Yes Recipient Signature: Yes Med Rec Note Co-signed by Attending: Coverage Notice Comment: [facility] for [facility] Last DP export: 09/04/19 8:41 a Patient Name: YOSSI EUGENE Page 68426 at 1540 All edits/amendments must be made on the electronic document DICTATION DATE: 09/04/19 1539 ALCOHOL STILL OPERATOR: FLAVIA 09/04/19 1539 RPT#: [id number] DC DATE: STATUS: ADM IN [facility] [address] [place] [address] END OF REPORT
[2019-09-04 17:37] VITALS: BP 121/69
--- NOTE | 2019-09-04 18:45 | NUR ---
I have reviewed this patient and I concur with the Shift Assessment completed by the Licensed Practical Nurse today this shift.
[2019-09-04 20:00] VITALS: BP 133/77
[2019-09-05 04:00] VITALS: BP 144/79
[2019-09-05 05:32] LABS: BASOPHILS 0.2 % (0-2); EOSINOPHILS 0 % (0-7); HEMATOCRIT 38.6 % (36.0-48.0); HEMOGLOBIN 12.8 g/dL (12-16); IMMATURE GRANULOCYTES 0.8 % (0-5); LYMPHOCYTES 18.4 % (15-50); MCH 29.3 pg (26.0-34.0); MCHC 33.2 g/dL (31.0-37.0); MCV 88.3 fL (80.0-100.0); MEAN PLATELET VOLUME 10.2 fL (7.4-10.4); NEUTROPHILS 76.6 % (40-80); PLATELET COUNT 201 10x3/uL (130-400); RBC 4.37 10x6/uL (4.00-5.40); RDW 13.4 % (11.5-14.5)
[2019-09-05 05:37] LABS: WBC 6.5 10x3/uL (4.8-10.8)
[2019-09-05 05:54] LABS: ANION GAP 11.2 mmol/L (8-16); CALCIUM 8.3 mg/dL (8.5-10.1); CARBON DIOXIDE 26.2 mmol/L (21.0-32.0); CREATININE - SERUM 0.9 mg/dL (0.6-1.3); MAGNESIUM - SERUM 2.2 mg/dL (1.8-2.4); POTASSIUM - SERUM 4.4 mmol/L (3.5-5.1)
[2019-09-05 09:01] VITALS: BP 148/78
--- NOTE | 2019-09-05 10:20 | NUR ---
PT ALERT X 4. INSPIRATORY AND EXPIRATORY WHEEZES TO ALL [place]. IV TO RIGHT AC PATENT, DRESSING CDI. PT REPORTING PAIN OF 7/10, WILL MONITOR. BOWEL SOUNDS HYPOACTIVE. BED LOW, CALL LIGHT IN REACH. NO OTHER NEEDS AT THIS TIME.
[2019-09-05 13:28] VITALS: BP 147/78
[2019-09-05 17:01] VITALS: BP 117/72
--- NOTE | 2019-09-05 19:15 | NUR ---
BEDSIDE REPORT RECEIVED. PATIENT ALERT AND ORIENTED. DENIES PAIN AT THIS TIME. UNLABORED RESPIRATIONS VIA ROOM AIR. BIPAP IN ROOM, PATIENT USES QHS. PATIENT COMPLAINTS OF STOMACH DISCOMFORT, STATES "I JUST FEEL SO FULL AND I THINK MY GUTS ARE PUSHING ON MY DIAPHRAGM AND THAT'S WHAT'S GIVING ME THIS FEELING." PATIENT REQUESTS PRN COLACE WITH HS MEDICATIONS. HAS RIGHT AC IV THAT IS INFUSING NS AT THIS TIME. NO REDNESS OR IRRITATION NOTED TO THE AREA. DENIES FURTHER NEEDS AT THIS TIME. CALL LIGHT REMAINS IN REACH OF PATIENT. CPOC.
--- NOTE | 2019-09-05 20:30 | NUR ---
PATIENT AMBULATING UNIT AND DOWN TO SNACK MACHINE. WEARING MASK FOR PRECAUTIONS.
[2019-09-05 22:08] VITALS: BP 128/77
[2019-09-06] VITALS: BP 138/66
[2019-09-06 04:00] VITALS: BP 125/63
[2019-09-06 05:30] LABS: BASOPHILS 0.1 % (0-2); EOSINOPHILS 0 % (0-7); HEMATOCRIT 38.3 % (36.0-48.0); HEMOGLOBIN 12.6 g/dL (12-16); IMMATURE GRANULOCYTES 1.2 % (0-5); LYMPHOCYTES 14.6 % (15-50); MCHC 32.9 g/dL (31.0-37.0); MEAN PLATELET VOLUME 10.1 fL (7.4-10.4); MONOCYTES 4.5 % (2-11); NEUTROPHILS 79.6 % (40-80); PLATELET COUNT 210 10x3/uL (130-400); RBC 4.35 10x6/uL (4.00-5.40); RDW 13.2 % (11.5-14.5)
[2019-09-06 05:36] LABS: WBC 8.3 10x3/uL (4.8-10.8)
[2019-09-06 05:41] LABS: CALCIUM 8.3 mg/dL (8.5-10.1); CARBON DIOXIDE 27.7 mmol/L (21.0-32.0); CREATININE - SERUM 0.9 mg/dL (0.6-1.3); MAGNESIUM - SERUM 2.1 mg/dL (1.8-2.4); POTASSIUM - SERUM 4.7 mmol/L (3.5-5.1)
--- NOTE | 2019-09-06 06:15 | NUR ---
RECEIVED CALL FROM TELEMETRY THAT PATIENT HEART RATE DIPPING INTO LOW 40S. PATIENT RESTING, AROUSES WHEN NAME CALLED. DENIES ANY DISCOMFORT OR ISSUES. CALLED YAN HULL APRN AND LET HIM KNOW. REVIEWED THAT PATIENT ON COREG. NO NEW ORDERS AT THIS TIME.
--- NOTE | 2019-09-06 07:10 | NUR ---
PT RESTING IN BED. NO SIGNS OF DISTRESS. IV TO RIGHT AC PATENT NO REDNESS OR TENDERNESS. ON TELEMETRY 57 SB. ON DROPLET ISO. DENIES ANY FURTHER NEED AT THIS TIME. CALL LIGHT IN REACH. BED LOW POSITION. NO FAMILY AT BEDSIDE AT THIS TIME.
[2019-09-06 08:45] VITALS: BP 96/64
[2019-09-06 12:29] VITALS: BP 138/70
[2019-09-06 12:49] LABS: ANION GAP 12.5 mmol/L (8-16); CALCIUM 8.5 mg/dL (8.5-10.1); CARBON DIOXIDE 25.8 mmol/L (21.0-32.0); POTASSIUM - SERUM 4.3 mmol/L (3.5-5.1)
--- NOTE | 2019-09-06 14:39 | NUR ---
I have reviewed this patient and I concur with the Shift Assessment completed by the Licensed Practical Nurse today this shift.
[2019-09-06 16:30] VITALS: BP 128/74
--- NOTE | 2019-09-06 19:20 | NUR ---
RESTING WITH EYES CLOSED USING BIPAP MACHINE AT THIS TIME. WAKES WHEN SPOKE TO. LUNGS PRESENT WITH BILATERAL LOWER LOBE EXPIRATORY WHEEZING. PATIENT COUGHS SEVERAL TIMES, RECENTLY HAD DOSE OF ROBITUSSIN FROM PREVIOUS SHIFT. PATIENT REQUESTS THAT PRN TESSALON PEARLE BE GIVEN WITH OTHER HS MEDICATIONS. PATIENT HAS HYPOACTIVE BOWELS WHEN AUSCULTATED. PATIENT EXPLAINS GASTROPARESIS AGGRAVATION. DENIES FURTHER NEEDS AT THIS TIME. CALL LIGHT IN REACH. ASSISTED PATIENT WITH PUTTING ON BIPAP. PATIENT RETURNS TO RESTING WHEN LEAVING THE ROOM. CPOC.
[2019-09-06 20:00] VITALS: BP 129/65
--- NOTE | 2019-09-06 21:55 | NUR ---
FSBS 223. PATIENT EATING PUDDING AND RECEIVED STEROID SHOT WITHIN LAST 15 MINUTES. PATIENT STATES "I REALLY DON'T THINK I NEED 12 UNITS OF INSULIN, CAN I HAVE LESS THAN THAT." PATIENT REQUESTED 8 UNITS, ADMINISTERED AND DOCUMENTED IN EMAR. DENIES FURTHER NEEDS. CALL LIGHT IN REACH. CPOC.
[2019-09-07] VITALS: BP 160/87
[2019-09-07 04:00] VITALS: BP 161/64
[2019-09-07 05:50] LABS: BASOPHILS 0.1 % (0-2); EOSINOPHILS 0 % (0-7); HEMATOCRIT 38.7 % (36.0-48.0); IMMATURE GRANULOCYTES 3.2 % (0-5); LYMPHOCYTES 15.5 % (15-50); MCHC 33.6 g/dL (31.0-37.0); MCV 86.4 fL (80.0-100.0); MEAN PLATELET VOLUME 10.6 fL (7.4-10.4); NEUTROPHILS 74.2 % (40-80); PLATELET COUNT 239 10x3/uL (130-400); RBC 4.48 10x6/uL (4.00-5.40); RDW 12.9 % (11.5-14.5); WBC 7.9 10x3/uL (4.8-10.8)
[2019-09-07 06:13] LABS: ANION GAP 12.1 mmol/L (8-16); CALCIUM 8.4 mg/dL (8.5-10.1); CARBON DIOXIDE 27.6 mmol/L (21.0-32.0); CREATININE - SERUM 0.9 mg/dL (0.6-1.3); PHOSPHOROUS 4.1 mg/dL (2.5-4.9); POTASSIUM - SERUM 4.7 mmol/L (3.5-5.1)
--- NOTE | 2019-09-07 07:10 | NUR ---
PT RESTING IN BED. NO SIGNS OF DISTRESS. IV TO RIGHT AC PATENT NO REDNESS OR TENDERNESS. ON DROPLET ISO. DENIES ANY FURTHER NEED AT THIS TIME. CALL LIGHT IN REACH. BED LOW POSITION. NO FAMILY AT BEDSIDE AT THIS TIME
--- NOTE | 2019-09-07 08:16 | NUR ---
LYING IN BED,WITHOUT DISTRESS. DROPLET ISOLATION MAINTAINED
[2019-09-07 08:40] VITALS: BP 138/686
--- NOTE | 2019-09-07 11:10 | MORECARE ---
CASE MANAGEMENT DISCHARGE SUMMARY PATIENT: YOSSI EUGENE UNIT: [id number] ADM DATE: 09/01/19 AGE: 59 : 60 SEX: F ROOM/BED: D.2219 AUTHOR: VISHAL NICOLAS PHYSICIAN: REFERRING PHYSICIAN: BLANCA DASH MD DATE OF SERVICE: 09/07/19 Discharge Plan Patient Name: YOSSI EUGENE Facility: [facility]:[place] : 1960 Planned Disposition: Home or Self Care Anticipated Discharge Date: Discharge Date: Expected LOS: Initial Reviewer: [email or web address] Initial Review Date: 09/01/2019 Generated: 09/07/19 12:10 pm Comments DCP- Discharge Planning Updated by [email or web address]: Nelly Cochran on 09/07/19 10:[address] Per Jaswinder with [facility], Nebulizer was delivered over the weekend to the patient DCP- Discharge Planning Updated by [id number]: Nelly Cochran on 09/04/19 2:[address] SENT ORDER AND CLINCIAL TO [facility] FOR A NEBULIZER DCP- Discharge Planning Updated by [email or web address]: Nelly Cochran on 09/04/19 2:[address] [facility] WILL BE ABLE TO SERVICE THE PATIENT WITH A NEW NEBULIZER [employer] HAS THE PATIENTS FACESHEET DCP- Discharge Planning Updated by [email or web address]: Nelly Cochran on 09/04/19 8:[address] Patient Name: YOSSI EUGENE Admission Status: Urgent Accout number: [id number] Admission Date: 09-01-2019 : 1960 Admission Diagnosis: Attending: BLANCA DASH Current LOS: 3 Anticipated DC Date: Planned Disposition: Home or Self Care Primary Insurance: [employer] O Discharge Planning Comments: CM met with patient to complete initial dc planning assessment. CM educated patient on the CM role and verbal consent given by patient to complete assessment. Patient lives at home where she is independent with her care. At discharge patient plans to return home and feels this is a safe discharge. Her daughter will be her wheat combine driver home. CM discussed availability of home health, rehab services, and medical equipment. She has a bipap machine and a nebulizer (that is broken). She stated that she got her bipap machine from [facility]. I told her I would try to get her a new nebulizer. HAYDER with [facility] or [facility]. Patient denied known discharge needs at this time. CM will continue to follow and will assist as needed with dc plans/needs. Kitchen And Bath Designer: Nelly Cochran DCPIA - Discharge Planning Initial Assessment Updated by [email or web address]: Nelly Cochran on 09/04/19 9:36 am * Is the patient Alert and Oriented? Yes * PCP [facility]ANO * Pharmacy [address] * Preadmission Environment Home with Family * ADLs Independent * Equipment BIPAP Nebulizer * List name and contact numbers for known caregivers / representatives who currently or will assist patient after discharge: VALERY [phone] * Verbal permission to speak to the caregivers and representatives has been obtained from the patient. N/A * Community resources currently utilized None * Additional services required to return to the preadmission environment? Yes * Can the patient safely return to the preadmission environment? Yes * Has this patient been hospitalized within the prior 30 days at any hospital? No Coverage Notice Reviewer: [id number] - Nelly Cochran Notice Issued Date-Time: 09/04/2019 8:50 Notice Type: Patient Choice Letter Notice Delivered To: Patient Relationship to Patient: Gas Charger Name: Delivery Method: HAND - Hand Delivered Swetha Days: Prior Verbal Notification: Recipient Understood Notice: Yes Recipient Signature: Yes Med Rec Note Co-signed by Attending: Coverage Notice Comment: [facility] for [facility] Last DP export: 09/04/19 2:40 p Patient Name: YOSSI EUGENE Page 87492 at 1110 All edits/amendments must be made on the electronic document DICTATION DATE: 09/07/19 1110 COPING MACHINE ASSEMBLER: FLAVIA 09/07/19 1110 RPT#: [id number] DC DATE: STATUS: ADM IN [facility] [address] [place] [address] END OF REPORT
[2019-09-07 12:12] VITALS: BP 138/76
[2019-09-07] MEDS ORDERED: Xopenex 0.63 MG INH UPD (12:26)
[2019-09-07] MEDS ORDERED: IPRAT-ALBUT 0.5-3 ML UPD (12:26)
[2019-09-07] MEDS ORDERED: TESSALON PERLE100 MG PO (12:28)
[2019-09-07] MEDS ORDERED: ROBITUSSIN DM 110 ML PO (12:28)
[2019-09-07] MEDS ORDERED: PULMICORT0.5 MG/21 UPD (12:28)
--- NOTE | 2019-09-07 13:34 | MORECARE ---
CASE MANAGEMENT DISCHARGE SUMMARY PATIENT: YOSSI EUGENE UNIT: [id number] ADM DATE: 09/01/19 AGE: 59 : 60 SEX: F ROOM/BED: D.2219 AUTHOR: VISHAL NICOLAS PHYSICIAN: REFERRING PHYSICIAN: BLANCA DASH MD DATE OF SERVICE: 09/07/19 Discharge Plan Patient Name: YOSSI EUGENE Facility: [facility]:[place] : 1960 Planned Disposition: Home or Self Care Anticipated Discharge Date: Discharge Date: Expected LOS: Initial Reviewer: [email or web address] Initial Review Date: 09/01/2019 Generated: 09/07/19 2:34 pm Comments DCP- Discharge Planning Updated by [email or web address]: Nelly Cochran on 09/07/19 12:[address] Patient Name: YOSSI EUGENE Encounter No: [id number] : 1960 Primary Insurance: [employer] [facility] Anticipated DC Date: Planned Disposition: Home or Self Care External Planned Provider: : DCP follow-up note: Patient and family in agreement with discharge plan. No changes to plan. Case management will follow and assist as needed. Nelly Cochran DCP- Discharge Planning Updated by [id number]: Nelly Cochran on 09/07/19 10:[address] Per Jaswinder with [facility], Nebulizer was delivered over the weekend to the patient DCP- Discharge Planning Updated by [email or web address]: Nelly Cochran on 09/04/19 2:[address] SENT ORDER AND CLINCIAL TO [facility] FOR A NEBULIZER DCP- Discharge Planning Updated by [email or web address]: Nelly Cochran on 09/04/19 2:[address] [facility] WILL BE ABLE TO SERVICE THE PATIENT WITH A NEW NEBULIZER [facility] HAS THE PATIENTS FACESHEET DCP- Discharge Planning Updated by [email or web address]: Nelly Cochran on 09/04/19 8:[address] Patient Name: YOSSI EUGENE Admission Status: Urgent Accout number: [id number] Admission Date: 09-01-2019 : 1960 Admission Diagnosis: Attending: BLANCA DASH Current LOS: 3 Anticipated DC Date: Planned Disposition: Home or Self Care Primary Insurance: [employer] O Discharge Planning Comments: CM met with patient to complete initial dc planning assessment. CM educated patient on the CM role and verbal consent given by patient to complete assessment. Patient lives at home where she is independent with her care. At discharge patient plans to return home and feels this is a safe discharge. Her daughter will be her bus van driver home. CM discussed availability of home health, rehab services, and medical equipment. She has a bipap machine and a nebulizer (that is broken). She stated that she got her bipap machine from [employer]. I told her I would try to get her a new nebulizer. HAYDER with [facility]. Patient denied known discharge needs at this time. CM will continue to follow and will assist as needed with dc plans/needs. Roofing Machine Operator: Nelly Cochran DCPIA - Discharge Planning Initial Assessment Updated by [email or web address]: Nelly Cochran on 09/04/19 9:36 am * Is the patient Alert and Oriented? Yes * PCP CHANO * Pharmacy [address] * Preadmission Environment Home with Family * ADLs Independent * Equipment BIPAP Nebulizer * List name and contact numbers for known caregivers / representatives who currently or will assist patient after discharge: VALERY [phone] * Verbal permission to speak to the caregivers and representatives has been obtained from the patient. N/A * Community resources currently utilized None * Additional services required to return to the preadmission environment? Yes * Can the patient safely return to the preadmission environment? Yes * Has this patient been hospitalized within the prior 30 days at any hospital? No Coverage Notice Reviewer: [id number] - Nelly Cochran Notice Issued Date-Time: 09/04/2019 8:50 Notice Type: Patient Choice Letter Notice Delivered To: Patient Relationship to Patient: Fish Cutting Machine Operator Name: Delivery Method: HAND - Hand Delivered Swetha Days: Prior Verbal Notification: Recipient Understood Notice: Yes Recipient Signature: Yes Med Rec Note Co-signed by Attending: Coverage Notice Comment: [facility] for [facility] Last DP export: 09/07/19 10:10 am Patient Name: YOSSI EUGENE Page 49259 at 1334 All edits/amendments must be made on the electronic document DICTATION DATE: 09/07/191333 SURGERY TEACHER: FLAVIA 09/07/191333 RPT#: [id number] DC DATE: STATUS: ADM IN [facility] [address] [place] [address] END OF REPORT
[2019-09-07] MEDS ORDERED: PREDNISONE10 MG PO (14:43)
--- NOTE | 2019-09-07 14:54 | NUR ---
DISCHARGE INSTRUCTIONS GIVEN. SEEMS TO UNDERSTAND INSTRUCTIONS. IV OUT TIP INTACT. TELEMETRY OFF AND RETURNED. LEFT WITH HOSPITAL STAFF TO GO HOME IN PERSONAL RIDE.
--- NOTE | 2019-09-10 12:33 | MORECARE ---
CASE MANAGEMENT DISCHARGE SUMMARY PATIENT: YOSSI EUGENE UNIT: [id number] ADM DATE: 09/01/19 AGE: 59 : 60 SEX: F ROOM/BED: D.2219 AUTHOR: VISHAL NICOLAS PHYSICIAN: REFERRING PHYSICIAN: BLANCA DASH MD DATE OF SERVICE: 09/10/19 Discharge Plan Patient Name: YOSSI EUGENE Facility: [facility]:[place] : 1960 Planned Disposition: Home or Self Care Anticipated Discharge Date: Discharge Date: 09/07/2019 Expected LOS: 0 Initial Reviewer: [email or web address] Initial Review Date: 09/01/2019 Generated: 09/10/19 1:33 pm Comments DCP- Discharge Planning Updated by [email or web address]: Nelly Cochran on 09/07/19 12:[address] Patient Name: YOSSI EUGENE Encounter No: [id number] : 1960 Primary Insurance: [employer] Anticipated DC Date: Planned Disposition: Home or Self Care External Planned Provider: : DCP follow-up note: Patient and family in agreement with discharge plan. No changes to plan. Case management will follow and assist as needed. Nelly Cochran DCP- Discharge Planning Updated by [email or web address]: Nelly Cochran on 09/07/19 10:[address] Per Jaswinder with [facility], Nebulizer was delivered over the weekend to the patient DCP- Discharge Planning Updated by [email or web address]: Nelly Cochran on 09/04/19 2:[address] SENT ORDER AND CLINCIAL TO [facility] FOR A NEBULIZER DCP- Discharge Planning Updated by [email or web address]: Nelly Cochran on 09/04/19 2:[address] [facility] WILL BE ABLE TO SERVICE THE PATIENT WITH A NEW NEBULIZER [employer] HAS THE PATIENTS FACESHEET DCP- Discharge Planning Updated by [email or web address]: Nelly Cochran on 09/04/19 8:[address] Patient Name: YOSSI EUGENE Admission Status: Urgent Accout number: [id number] Admission Date: 09-01-2019 : 1960 Admission Diagnosis: Attending: BLANCA DASH Current LOS: 3 Anticipated DC Date: Planned Disposition: Home or Self Care Primary Insurance: [employer] O Discharge Planning Comments: CM met with patient to complete initial dc planning assessment. CM educated patient on the CM role and verbal consent given by patient to complete assessment. Patient lives at home where she is independent with her care. At discharge patient plans to return home and feels this is a safe discharge. Her daughter will be her race car driver home. CM discussed availability of home health, rehab services, and medical equipment. She has a bipap machine and a nebulizer (that is broken). She stated that she got her bipap machine from [employer]. I told her I would try to get her a new nebulizer. HAYDER with [facility]. Patient denied known discharge needs at this time. CM will continue to follow and will assist as needed with dc plans/needs. Card Painter: Nelly Cochran DCPIA - Discharge Planning Initial Assessment Updated by [email or web address]: Nelly Cochran on 09/04/19 9:36 am * Is the patient Alert and Oriented? Yes * PCP CHANO * Pharmacy [address] * Preadmission Environment Home with Family * ADLs Independent * Equipment BIPAP Nebulizer * List name and contact numbers for known caregivers / representatives who currently or will assist patient after discharge: VALERY [phone] * Verbal permission to speak to the caregivers and representatives has been obtained from the patient. N/A * Community resources currently utilized None * Additional services required to return to the preadmission environment? Yes * Can the patient safely return to the preadmission environment? Yes * Has this patient been hospitalized within the prior 30 days at any hospital? No Coverage Notice Reviewer: [id number] - Nelly Cochran Notice Issued Date-Time: 09/04/2019 8:50 Notice Type: Patient Choice Letter Notice Delivered To: Patient Relationship to Patient: Endo Tech Name: Delivery Method: HAND - Hand Delivered Swetha Days: Prior Verbal Notification: Recipient Understood Notice: Yes Recipient Signature: Yes Med Rec Note Co-signed by Attending: Coverage Notice Comment: [facility] for [facility] Last DP export: 09/07/19 12:34 pm Patient Name: YOSSI EUGENE Page 19411 at 1233 All edits/amendments must be made on the electronic document DICTATION DATE: 09/10/19 1233 BITUMINOUS DISTRIBUTOR OPERATOR: FLAVIA 09/10/19 1233 RPT#: [id number] DC DATE:09/07/19 STATUS: DIS IN [facility] [address] [place] [address] END OF REPORT
== END 2019-09-07 15:08 | disposition home or self-care (01) | DRG 153 ==
LOC: D.MS 15:06
PROVIDERS: Family Medicine; ADMIT Internal Medicine Nephrology; ATTEND Internal Medicine Nephrology
DX: J11.1 Influenza due to unidentified influenza virus with other respiratory manifestations (principal); J45.901 Unspecified asthma with (acute) exacerbation; E11.42 Type 2 diabetes mellitus with diabetic polyneuropathy; F90.9 Attention-deficit hyperactivity disorder, unspecified type; I10 Essential (primary) hypertension; K21.9 Gastro-esophageal reflux disease without esophagitis; E11.43 Type 2 diabetes mellitus with diabetic autonomic (poly)neuropathy; Z85.41 Personal history of malignant neoplasm of cervix uteri; E78.2 Mixed hyperlipidemia; F41.9 Anxiety disorder, unspecified; I25.10 Atherosclerotic heart disease of native coronary artery without angina pectoris; E66.9 Obesity, unspecified; Z68.30 Body mass index [BMI] 30.0-30.9, adult

== ENCOUNTER → 2019-10-19 18:17 | Outpatient (CLI) | payer BC ==
[2019-09-02 10:58] VITALS: BMI 30.8
[~2019-10-19 18:17] MED LIST changes: +IPRAT-ALBUT 0.5-3 ML UPD; +PREDNISONE10 MG PO; +PULMICORT0.5 MG/21 UPD; +ROBITUSSIN DM 110 ML PO; +TESSALON PERLE100 MG PO; +Xopenex 0.63 MG INH UPD
[2019-10-19 18:35] LABS: BASOPHILS 0.5 % (0-2); EOSINOPHILS 2.5 % (0-7); HEMOGLOBIN 14.9 g/dL (12-16); IMMATURE GRANULOCYTES 0.2 % (0-5); LYMPHOCYTES 48.7 % (15-50); MCH 29.7 pg (26.0-34.0); MCHC 33.1 g/dL (31.0-37.0); MCV 89.8 fL (80.0-100.0); MEAN PLATELET VOLUME 10.6 fL (7.4-10.4); MONOCYTES 8.5 % (2-11); NEUTROPHILS 39.6 % (40-80); PLATELET COUNT 262 10x3/uL (130-400); RBC 5.01 10x6/uL (4.00-5.40); WBC 5.5 10x3/uL (4.8-10.8)
== END | disposition home or self-care (01) ==
LOC: D.LABREF 18:17
PROVIDERS: ATTEND Internal Medicine Pulmonary Disease
DX: J45.909 Unspecified asthma, uncomplicated (principal)

== ENCOUNTER 2019-11-25 05:42 | Day surgery (SDC) | payer BC ==
[~2019-11-25] VITALS: Ht 154.9 cm; Wt 75.5 kg
--- NOTE | ~2019-11-25 | OP ---
PATIENT NAME: YOSSI EUGENE MEDICAL RECORD: [id number] :60 LOCATION:[facility] ADMISSION DATE: SURGEON: SILVIA COBB DO DATE OF OPERATION: 11/25/2019 PROCEDURE: EGD with biopsies. INDICATIONS FOR PROCEDURE: Heartburn, gastroparesis, change in bowel habits and diarrhea. SCOPE: Olympus video gastroscope. MEDICATIONS: Propofol 200 mg IV per anesthesia. ESTIMATED BLOOD LOSS: Minimal. COMPLICATIONS: None. FINDINGS: Informed consent was given. The patient was made comfortable with the above medication. After reaching an adequate level of sedation by slow IV push, the patient was placed on her left side. The endoscope was advanced under direct visualization through the mouth to the second portion of the duodenum with ease. The entire esophagus appeared normal down to the GE junction. At the GE junction, there were minor changes consistent with LA class A reflux-induced esophagitis. There was a very mild Schatzki's ring present proximal to a uqczf-tq-krjcvluw size hiatal hernia. The endoscope was advanced into the stomach and retroflexed to view the cardia, where the hiatal hernia was again visualized. It was a sliding type hiatal hernia without associated ulcers or other abnormalities. Throughout the entire stomach, there were changes of erythema and edema consistent with mild chronic gastritis. Cold forceps biopsies were taken from the antrum and incisura to submit for histopathology and to rule out the presence of H. pylori. In the antrum, just proximal to the pylorus, there was an ulcer with heaped up margins. The ulcer measured approximately 4-5 mm in diameter. Cold forceps biopsies were taken of the ulcerated site to submit for histopathology. The endoscope was advanced beyond the pylorus into the duodenum, which appeared normal to the second portion. Cold forceps biopsies were taken randomly to submit for histopathology regarding the patient's bowel changes. The endoscope was withdrawn from the patient. The patient tolerated the procedure well and there were no complications. IMPRESSION: 1. LA class A reflux-induced esophagitis. 2. Mild Schatzki ring located at the GE junction, proximal to a hiatal hernia. 3. Lwreh-ah-latqbcvw sized sliding hiatal hernia. 4. Gastritis changes. 5. A single gastric ulcer just proximal to the pylorus, which was biopsied. PLAN AND RECOMMENDATIONS: 1. Discharge home when recovery parameters are met. 2. Follow up biopsy specimen results. 3. GERD diet and reflux precautions. 4. Continue current medications including Nexium 40 mg daily in the a.m. 5. Add Pepcid 40 mg p.o. each day at bedtime for 60 days to see if this helps reflux. 6. If heartburn and reflux symptoms remain uncontrolled on Nexium and Pepcid, OPERATIVE REPORT [id number] YOSSI EUGENE consider surgical referral to look at the patient's hiatal hernia and possibility of a fundoplication. 7. Regarding the gastroparesis, the patient should continue to manage this with small frequent meals and use as needed Reglan when symptoms are uncontrolled. 8. Proceed with colonoscopy as scheduled. TRANSINT:[id number] Voice Confirmation ID: [id number] DOCUMENT ID: [id number] SILVIA COBB DO CC: [id number] DICTATION DATE: 11/25/19825 ARCADE GAME TECHNICIAN: 11/25/19 [address] [facility] 11/25/19 [place] [id number] [place] [address]
[2019-11-25 06:11] LABS: HEMATOCRIT 45.5 % (36.0-48.0); HEMOGLOBIN 15.2 g/dL (12-16); MCH 29.8 pg (26.0-34.0); MCHC 33.4 g/dL (31.0-37.0); MCV 89.2 fL (80.0-100.0); MEAN PLATELET VOLUME 9.3 fL (7.4-10.4); RBC 5.1 10x6/uL (4.00-5.40); RDW 13.1 % (11.5-14.5); WBC 5.7 10x3/uL (4.8-10.8)
[2019-11-25] MEDS ORDERED: SYMBICORT 16010.2 GM INH (06:16)
[2019-11-25 06:21] LABS: ANION GAP 10.5 mmol/L (8-16); CALCIUM 8.6 mg/dL (8.5-10.1); CARBON DIOXIDE 26.8 mmol/L (21.0-32.0); CREATININE - SERUM 0.9 mg/dL (0.6-1.3); POTASSIUM - SERUM 4.3 mmol/L (3.5-5.1)
[2019-11-25 06:23] VITALS: Ht 154.9 cm; Wt 75.5 kg
--- NOTE | 2019-11-25 08:49 | NUR ---
DC INSTRUCTIONS GIVEN TO PT. STATES UNDERSTANDING. DC'D IV CATH FULLY INTACT. CALLED PT'S DAUGHTER TO PICK PT UP AT 0905. WILL DC PT SHORTLY.
--- NOTE | 2019-11-25 09:10 | NUR ---
PT LEFT UNIT VIA WC AT 3841
== END 2019-11-25 09:14 | disposition home or self-care (01) ==
LOC: D.OPS 05:42
PROVIDERS: Anesthesiology; ATTEND Internal Medicine Gastroenterology
DX: R12 Heartburn (principal); K31.84 Gastroparesis; R19.7 Diarrhea, unspecified; R19.4 Change in bowel habit; E11.9 Type 2 diabetes mellitus without complications; Z79.84 Long term (current) use of oral hypoglycemic drugs; J45.909 Unspecified asthma, uncomplicated; I50.9 Heart failure, unspecified

== ENCOUNTER → 2019-12-07 08:37 | Outpatient (CLI) | payer BC ==
[2019-11-25 06:23] VITALS: BMI 31.4
[~2019-12-07 08:37] MED LIST changes: +SYMBICORT 16010.2 GM INH
== END | disposition home or self-care (01) ==
LOC: D.CT 08:37
PROVIDERS: ATTEND Surgery
DX: R10.2 Pelvic and perineal pain (principal)

== ENCOUNTER 2019-12-24 05:15 | Day surgery (SDC) | payer BC ==
[~2019-12-24] VITALS: Ht 154.9 cm; Wt 73.0 kg
[2019-12-24 05:44] LABS: BASOPHILS 0.3 % (0-2); EOSINOPHILS 2.7 % (0-7); HEMATOCRIT 45.4 % (36.0-48.0); HEMOGLOBIN 15.2 g/dL (12-16); IMMATURE GRANULOCYTES 0.2 % (0-5); MCH 29.2 pg (26.0-34.0); MCHC 33.5 g/dL (31.0-37.0); MCV 87.1 fL (80.0-100.0); MEAN PLATELET VOLUME 9.5 fL (7.4-10.4); MONOCYTES 9.5 % (2-11); NEUTROPHILS 46.3 % (40-80); PLATELET COUNT 224 10x3/uL (130-400); RBC 5.21 10x6/uL (4.00-5.40); WBC 6.4 10x3/uL (4.8-10.8)
[2019-12-24 06:07] LABS: ANION GAP 9.5 mmol/L (8-16); CALCIUM 8.9 mg/dL (8.5-10.1); CARBON DIOXIDE 28.6 mmol/L (21.0-32.0); POTASSIUM - SERUM 4.1 mmol/L (3.5-5.1)
[2019-12-24] MEDS ORDERED: PEPCID40 MG PO (06:15)
[2019-12-24] MEDS ORDERED: GLYXAMBI 10 MG1 EACH PO (06:21)
[2019-12-24 06:22] VITALS: BP 151/74; Ht 154.9 cm; Wt 73.0 kg
[2019-12-24] MEDS ORDERED: HYDROCODON-ACE1 EA10 PO (08:27)
--- NOTE | 2019-12-24 14:36 | NUR ---
0927-RECEIVED FROM . SLEEPING,SNORING,NO DISTRESS, ABLE TO AROUSE WITH VERBAL STIMULI, UNABLE TO FOCUS WITH EYES OR MAKE SINCE WHEN TALKING- MUMBLING. 02 VIA N/C @3L. VSS. DRESSING TO ABD CDI. CL IN EASY REACH. DOOR REMAINS OPEN. CLOSE TO NURSES STATION
--- NOTE | 2019-12-24 14:38 | NUR ---
1030-CONTINUE TO BE SLEEPING, SNORING HEAVILY, VSS, REMAINS ON OXYGEN VIA N/C @2L. NO OBVIOUS DISTRESS. CONTINUE TO BE ABLE TO AROUSE WITH VERBAL STIMULI,BUT UNABLE TO TALK REAL CLEARLY AND EYES AREN'T FOCUSING CLEAR. IV FLUIDS AT GRAVITY
--- NOTE | 2019-12-24 14:40 | NUR ---
1100-JAYDON LEMON CHER-AE HEIGHTS ON ICE AND PUDDING AT BEDSIDE. PT IS MORE AROUSABLE, ENCOURAGED TO EAT PUDDING. DRIFTS OFF TO SLEEP AFTER A FEW BITES.
--- NOTE | 2019-12-24 14:42 | NUR ---
1200-PT ABLE TO MAKE CONVERSATION. VSS. ON RA. VSS. NO DISTRESS. DRESSING TO ABD CDI. REMOVED IV WITH CATH INTACT,DISPOSED INTO SHARPS,COVERED WITH GUAZE,SECURED WITH MEDIPORE TAPE.
--- NOTE | 2019-12-24 14:44 | NUR ---
1230-PT DRESSED.VSS. A&OX4.NO DISTRESS. DRESSING CDI TO ABD. REVIEWED POST OPERATIVE INSTRUCTIONS AND FOLLOW UP APPOINTMENT. ESCORTED OUT VIA W/C BY STAFF WITH FRIEND AWAITING TO DRIVE HOME
--- NOTE | 2019-12-25 13:40 | OP ---
PATIENT NAME: YOSSI EUGENE MEDICAL RECORD: [id number] :60 LOCATION:[facility] ADMISSION DATE: SURGEON: JAC PABLO MD DATE OF OPERATION: 12/24/2019 PREOPERATIVE DIAGNOSES: 1. Recurrent abdominal scar infections. 2. Diabetes mellitus. POSTOPERATIVE DIAGNOSES: 1. Recurrent abdominal scar infections 2. Diabetes mellitus. PROCEDURE: Abdominal scar revision (12 cm). SURGEON: Jac Pablo MD REPORT OF PROCEDURE: The patient's abdomen was prepped and draped in sterile fashion. The patient had a previous Pfannenstiel incision scar that was concave in nature and really pulling down on the tissues. This made a firm ridge of scar on the most inferior aspect of the fold of the abdomen. We excised the scar using sharp dissection and electrocautery. The total length of the scar that was removed was approximately 12 cm. After we got this piece of scar tissue off then it was sent for permanent specimen. The underlying fatty tissue had no signs of inflammatory changes. There was no sign of recurrent infections or abscess pockets. There were no cyst cavities. There were no signs of any chronic inflammation. The fatty tissue was undermined a little bit superiorly and inferiorly. We then irrigated out the wound thoroughly with normal saline and assured there was no sign of any active bleeding. Using 3-0 nylons, we reapproximated the skin edges using vertical mattress sutures. There was good approximation of the tissue. We then dressed the wound with Steri-Strips and a clean gauze. COMPLICATIONS: None. CONDITION: Stable. ANESTHESIA: General endotracheal. BLOOD LOSS: Minimal. TRANSINT:[id number] Voice Confirmation ID: [id number] DOCUMENT ID: [id number] JAC PABLO MD at 1340 CC: DIEGO MADDEN [id number] DICTATION DATE: 12/24/19 0832 AUTO TECH: 12/24/[address] [facility] 12/24/19 [id number] [place] [address]
== END 2019-12-24 12:30 | disposition home or self-care (01) ==
LOC: D.OPS 05:15 → D.PAN 08:00 → D.OPS 12:30 → D.PAN 13:00 → D.OPS 13:00
PROVIDERS: ATTEND Surgery
DX: L90.5 Scar conditions and fibrosis of skin (principal); L08.89 Other specified local infections of the skin and subcutaneous tissue; R10.33 Periumbilical pain; J45.909 Unspecified asthma, uncomplicated; E11.9 Type 2 diabetes mellitus without complications; Z79.84 Long term (current) use of oral hypoglycemic drugs

== ENCOUNTER 2020-01-25 09:50 | Day surgery (SDC) | payer BC ==
[~2020-01-25] VITALS: Ht 154.9 cm; Wt 70.5 kg
[~2020-01-25 09:50] MED LIST changes: +GLYXAMBI 10 MG1 EACH PO; +HYDROCODON-ACE1 EA10 PO; +PEPCID40 MG PO
[2020-01-25 11:09] LABS: ANION GAP 8.7 mmol/L (8-16); CALCIUM 8.9 mg/dL (8.5-10.1); CARBON DIOXIDE 30.3 mmol/L (21.0-32.0); CREATININE - SERUM 0.9 mg/dL (0.6-1.3)
[2020-01-25 11:11] LABS: BASOPHILS 0.2 % (0-2); EOSINOPHILS 2.9 % (0-7); HEMOGLOBIN 14.9 g/dL (12-16); IMMATURE GRANULOCYTES 0.2 % (0-5); LYMPHOCYTES 44.3 % (15-50); MCH 29.3 pg (26.0-34.0); MCHC 33.9 g/dL (31.0-37.0); MCV 86.4 fL (80.0-100.0); MEAN PLATELET VOLUME 9.6 fL (7.4-10.4); MONOCYTES 7.9 % (2-11); NEUTROPHILS 44.5 % (40-80); PLATELET COUNT 228 10x3/uL (130-400); RBC 5.09 10x6/uL (4.00-5.40); WBC 5.8 10x3/uL (4.8-10.8)
[2020-01-25 11:38] VITALS: Ht 154.9 cm; Wt 70.5 kg
--- NOTE | 2020-01-25 12:43 | NUR ---
1240-KALYANI FROM GI LAB. 1243- VOISE IN TO REPORT FINDINGS.
--- NOTE | 2020-01-25 14:11 | NUR ---
1255-COUGHING AND WHEEZING, ANESTHESIA CONTACTED. 1315-RT HERE FOR ALBUTEROL UPDRAFT. 1325-UP TO BATHROOM, VOIDS, IV D/C 1330-BREATHING MUCH EASIER. 1340-DISCHARGE INSTRUCTIONS REVIEWED 1350-D/C HOME VIA WHEELCHAIR WITH DAUGHTER.
--- NOTE | 2020-01-27 11:26 | OP ---
PATIENT NAME: YOSSI EUGENE MEDICAL RECORD: [id number] :60 LOCATION:[facility] ADMISSION DATE: SURGEON: SILVIA COBB DO DATE OF OPERATION: 01/25/2020 PROCEDURE: Colonoscopy with biopsies. INDICATIONS FOR PROCEDURE: Diarrhea, change in bowel habits. SCOPE: Olympus video pediatric colonoscope. MEDICATIONS: Propofol 320 mg IV per anesthesia. WITHDRAWAL TIME: 12 minutes. ESTIMATED BLOOD LOSS: Minimal. COMPLICATIONS: None. FINDINGS: Informed consent was given. The patient was made comfortable with the above medication. After reaching an adequate level of sedation by slow IV push, the patient was placed on her left side. A digital rectal examination was performed and it was normal. The endoscope was then advanced under direct visualization through the rectum to the cecum, confirmed by the presence of the appendiceal orifice and ileocecal valve. The endoscope was slowly withdrawn and mucosa was carefully examined. The prep quality was good. There were no polyps visualized on today's examination. There were multiple small amount diverticula scattered throughout the transverse, descending, and sigmoid colon. Retroflexion was performed in the rectum with visualization of grade I internal hemorrhoids without bleeding. During the procedure, there were multiple cold forceps biopsies taken to submit for histopathology and to rule out the presence of microscopic colitis. Stool was also collected during the procedure to submit for stool studies to rule out an infectious cause for the patient's diarrhea. The endoscope was withdrawn from the patient. The patient tolerated the procedure well and there were no complications. IMPRESSION: 1. Moderate diverticulosis. 2. Grade I internal hemorrhoids without bleeding. PLAN AND RECOMMENDATIONS: 1. Discharge home when recovery parameters are met. 2. Follow up biopsy specimen results. 3. High fiber diet. 4. Continue current medications. 5. Prescriptions will be given for cholestyramine 4 grams b.i.d. p.r.n. diarrhea and dicyclomine 20 mg t.i.d. p.r.n. loose stools or abdominal pain or cramping. 6. Recall colonoscopy in 5 years. 7. Follow up in GI clinic in 4-6 weeks. TRANSINT:[id number] Voice Confirmation ID: [id number] DOCUMENT ID: [id number] OPERATIVE REPORT [id number] YOSSI EUGENE SILVIA COBB DO at 1123 CC: [id number] DICTATION DATE: 01/25/20 1232 DELIVERY DRIVER/CUSTOMER SERVICE: 01/25/20 1527 [facility] 01/25/20 [facility] [address] [place] [address]
== END 2020-01-25 13:50 | disposition home or self-care (01) ==
LOC: D.OPS 09:50
PROVIDERS: Anesthesiology; ATTEND Internal Medicine Gastroenterology
DX: R19.7 Diarrhea, unspecified (principal); R19.4 Change in bowel habit; J45.909 Unspecified asthma, uncomplicated; E11.9 Type 2 diabetes mellitus without complications; Z79.84 Long term (current) use of oral hypoglycemic drugs

== ENCOUNTER → 2020-02-19 13:11 | Outpatient (CLI) | payer BC ==
[2020-01-25 11:38] VITALS: BMI 29.3
== END | disposition home or self-care (01) ==
LOC: D.MRI 13:11
PROVIDERS: ATTEND Clinical Nurse Specialist Family Health
DX: M25.562 Pain in left knee (principal)

== ENCOUNTER 2020-02-25 15:10 | Outpatient (CLI) | payer BC ==
[2020-01-25 11:38] VITALS: BMI 29.3
== END 2020-02-25 23:59 | disposition home or self-care (01) ==
LOC: D.MAMMO 15:10
PROVIDERS: ATTEND Family Medicine
DX: Z12.31 Encounter for screening mammogram for malignant neoplasm of breast (principal)

== ENCOUNTER 2020-03-17 05:35 | Day surgery (SDC) | payer BC ==
[2020-03-16 13:18] LABS: HEMATOCRIT 47.2 % (36.0-48.0); HEMOGLOBIN 16.1 g/dL (12-16); MCH 29.7 pg (26.0-34.0); MCHC 34.1 g/dL (31.0-37.0); MCV 86.9 fL (80.0-100.0); MEAN PLATELET VOLUME 9.2 fL (7.4-10.4); RBC 5.43 10x6/uL (4.00-5.40); RDW 13.9 % (11.5-14.5); WBC 10.1 10x3/uL (4.8-10.8)
[2020-03-16 13:41] LABS: ANION GAP 12.6 mmol/L (8-16); CALCIUM 8.8 mg/dL (8.5-10.1); CARBON DIOXIDE 27.3 mmol/L (21.0-32.0); CREATININE - SERUM 1.1 mg/dL (0.6-1.3); POTASSIUM - SERUM 3.9 mmol/L (3.5-5.1)
[~2020-03-17] VITALS: Ht 154.9 cm; Wt 73.0 kg
[~2020-03-17 05:35] MED LIST changes: +MECLIZINE HCL25 MG PO; +METFORMIN HCL500 M1 PO; +REGLAN10 MG PO
[2020-03-17 06:16] VITALS: BP 94/64; Ht 154.9 cm; Wt 73.0 kg
[2020-03-17] MEDS ORDERED: HYDROCODON-ACE1 EA10 PO (09:02)
--- NOTE | 2020-03-17 11:12 | NUR ---
1030 UNEVENTFUL RECOVERY. IV D/C'D WITH CANNULA INTACT, PRESSURE HELD, AND DRSG APPLIED. DISCHARGE INSTRUCTIONS GIVEN TO PT AND DAUGHTER, BOTH VERBALIZED AN UNDERSTANDING. OPERATIVE SITE UNCHANGED AND WITHOUT PAIN.
--- NOTE | 2020-03-26 17:42 | OP ---
PATIENT NAME: YOSSI EUGENE MEDICAL RECORD: [id number] :60 LOCATION:[facility] ADMISSION DATE: SURGEON: NATHEN LINCOLN MD DATE OF OPERATION: 03/17/2020 PREOPERATIVE DIAGNOSES: 1. Osteochondritis dissecans. 2. Medial meniscus tear. POSTOPERATIVE DIAGNOSES: 1. Osteochondritis dissecans. 2. Medial meniscus tear. PROCEDURES: 1. Open OATS (osteochondral autograft transplant) procedure of the left knee. 2. Arthroscopic partial medial meniscectomy. SURGEON: Nathen Lincoln MD TRAILHEAD CONSTRUCTION WORKER: VALARIE Macias INTRAOPERATIVE COMPLICATIONS: None. SUMMARY OF PATHOLOGIC FINDINGS: Consistent with the preoperative diagnoses, the patient had osteochondritis dissecans, which is unstable. She also had a complex tear of the posterior horn of medial meniscus. OPERATIVE SUMMARY IN DETAIL: After obtaining the appropriate preoperative orthopedic surgery consent as well as anesthetic consultation, evaluation and clearance, the patient was brought to the operating room and placed on the operating table in supine position. After adequate general laryngeal mask airway was administered, tourniquet was placed about the proximal aspect of the left lower extremity. Left lower extremity was then prepped and draped in routine sterile fashion. The leg was elevated and exsanguinated. Tourniquet inflated to 350 mmHg. At this time, the appropriate timeout was taken, given the patient's unique identifiers and agreed upon by all. Arthroscopy was established in the left knee in inferolateral portal followed by superomedial portal and then the inferolateral portal. Diagnostic arthroscopy did reveal the above findings. Attention was first turned to arthroscopic partial medial meniscectomy. A combination of meniscotomes as well as a full radius resector was utilized to debride the medial meniscus back to stable meniscal elements. At this point, the patient's OCD lesion had been identified. Small medial arthrotomy was made and the 10-mm OATS system was utilized. The OCD lesion was cut out first and saved for reimplantation at the autograft site. Autograft site was taken superior medial aspect with the appropriate curvature. This was then transplanted into the defect with excellent contour and shape. The residual that was taken from the OCD lesion was placed back into the patient's harvest site. Having completed this, wound was irrigated. The paramedian arthrotomy was closed with #1 Vicryl, 2-0 Vicryl and skin andrews. Arthroscopy portals were closed with 4-0 Prolene. Sterile dressings were applied. Tourniquet was deflated. The patient was awakened and taken to recovery room in stable condition. All final needle and sponge counts were correct. TRANSINT:[id number] Voice Confirmation ID: [id number] DOCUMENT ID: [id number] OPERATIVE REPORT [id number] YOSSI EUGENE MD, NATHEN DENNISON at 1742 CC: [id number] DICTATION DATE: 03/26/20 1122 PREMIUM REPRESENTATIVE: 03/26/20 1657 [facility] 03/17/20 [facility] [address] [place] [address]
== END 2020-03-17 10:45 | disposition home or self-care (01) ==
LOC: D.OPS 05:35
PROVIDERS: Anesthesiology; ATTEND Orthopaedic Surgery
DX: S83.242A Other tear of medial meniscus, current injury, left knee, initial encounter (principal); X58.XXXA Exposure to other specified factors, initial encounter; M93.262 Osteochondritis dissecans, left knee; M25.562 Pain in left knee; M85.661 Other cyst of bone, right lower leg

== ENCOUNTER 2020-04-27 08:41 | Outpatient (CLI) | payer BC ==
[2020-03-17 06:16] VITALS: BMI 30.5
== END 2020-04-27 10:00 ==
LOC: D.OPS 08:41
PROVIDERS: ATTEND Surgery
DX: K21.9 Gastro-esophageal reflux disease without esophagitis (principal); K44.9 Diaphragmatic hernia without obstruction or gangrene

== ENCOUNTER → 2020-11-17 18:37 | Outpatient (CLI) | payer BC ==
[2020-06-01 11:16] VITALS: BMI 30.4
[~2020-11-17 18:37] MED LIST changes: +PROAIR HFA8.5 G1 INH; +SPIRIVA18 MCG INH; +VOLTAREN100 GM TOPICAL; +ZANAFLEX4 MG PO
== END | disposition home or self-care (01) ==
LOC: D.LABREF 18:37
PROVIDERS: ATTEND Orthopaedic Surgery
DX: M17.12 Unilateral primary osteoarthritis, left knee (principal)